=== PATIENT | female | born 1940 ===

== ENCOUNTER 2017-06-13 09:45 | Emergency (ER) | payer MEDICARE, MEDICAID ==
[2017-06-13 10:14] VITALS: RESP 18
--- NOTE | 2017-06-13 10:14 | C.PDOC ---
History Of Present Illness 76 year old female presents to the ED with complaints of generalized body aches , dysuria,decreased activity, and PO intake for five days. Patient denies fever , chills, nausea, vomiting, or headache. Time Seen by Provider: 06/13/17 10:08 Chief Complaint (Nursing): Fever History Per: Patient History/Exam Limitations: no limitations Onset/Duration Of Symptoms: Days (5 days ) Current Symptoms Are (Timing): Still Present Past Medical History Reviewed: Historical Data, Nursing Documentation, Vital Signs Vital Signs: Last Vital Signs Temp 98.5 F 06/13/17 12:59 Pulse 87 06/13/17 12:59 Resp 18 06/13/17 12:59 BP 114/72 06/13/17 12:59 Pulse Ox 96 06/13/17 12:59 Family History: States: Unknown Family Hx Review Of Systems Constitutional: Positive for: Other (generalized bodyaches, decreased activity and PO intake. ). Negative for: Fever, Chills Cardiovascular: Negative for: Chest Pain, Palpitations Respiratory: Negative for: Cough, Shortness of Breath Gastrointestinal: Negative for: Nausea, Vomiting, Abdominal Pain, Diarrhea Genitourinary: Positive for: Dysuria. Negative for: Hematuria Musculoskeletal: Negative for: Back Pain Neurological: Negative for: Headache Physical Exam - Physical Exam Appears: Non-toxic, No Acute Distress, Other (Patient is non-febrile) Skin: Warm, Dry Head: Atraumatic Eye(s): bilateral: Normal Inspection, PERRL, EOMI Ear(s): Bilateral: Normal Oral Mucosa: Moist Neck: Supple Chest: Symmetrical, No Deformity Cardiovascular: Rhythm Regular, No Murmur Respiratory: Normal Breath Sounds, No Rales, No Rhonchi, No Wheezing Gastrointestinal/Abdominal: Soft, No Tenderness, No Distention, No Guarding, No Rebound Back: No CVA Tenderness Extremity: Normal ROM, No Tenderness Neurological/Psych: Oriented x3 (patient is awake, alert, and cooperative), Normal Speech, Normal Cognition, Normal Motor, Normal Sensation ED Course And Treatment - Laboratory Results Result Diagrams: 06/13/17 10:57 06/13/17 10:57 Progress Note: VBG, UA, and blood work were ordered. Patient was treated for UTI due to abnormal urine labs and like viral symptoms. Patient was given Cipro and Rocephin. Disposition - Disposition Referrals: [facility] [Outside] Disposition: HOME/ ROUTINE Disposition Time: 13:09 Condition: STABLE Prescriptions: Nitrofurantoin Macrocrystals [Macrobid] 1 cap PO BID #14 cap Instructions: Urinary Tract Infection in Women (ED), Viral Syndrome (ED) Forms: [facility] (Wolof), General Discharge Instructions - POA Present On Arrival: None - Clinical Impression Clinical Impression: Influenza-like illness, Fever, UTI (urinary tract infection) - Scribe Statement The provider has reviewed the documentation as recorded by the Scribe Michela Kaye All medical record entries made by the Scribe were at my direction and personally dictated by me. I have reviewed the chart and agree that the record accurately reflects my personal performance of the history, physical exam, medical decision making, and the department course for this patient. I have also personally directed, reviewed, and agree with the discharge instructions and disposition.
[2017-06-13 11:00] LABS: VENOUS BLOOD GAS BASE EXCESS 1.5 mmol/L (0.0-2.0); VENOUS BLOOD GAS PCO2 39 mmHg (40-60); VENOUS BLOOD PH 7.43 (7.32-7.43)
[2017-06-13 11:05] LABS: BASO # 0.1 K/uL (0.0-0.2); BASO % 1.1 % (0.0-2.0); EOS % 0.1 % (0.0-4.0); HEMATOCRIT 36.8 % (34.0-47.0); LYMPH # 0.8 K/uL (1.0-4.3); LYMPH % 12.9 % (20.0-40.0); MEAN CELL VOLUME 71.1 fL (81.0-99.0); MEAN CORPUSCULAR HEMOGLOBIN 23.5 pg (27.0-31.0); MEAN PLATELET VOLUME 8.9 fL (7.2-11.7); MONO # 0.8 K/uL (0.0-0.8); MONO % 12.8 % (0.0-10.0); RED CELL DISTRIBUTION WIDTH 13.9 % (11.5-14.5); WHITE BLOOD COUNT 6.2 K/uL (4.8-10.8)
[2017-06-13 11:14] LABS: POTASSIUM 4.4 mmol/L (3.6-5.2)
[2017-06-13 11:16] LABS: BILIRUBIN,TOTAL 0.7 mg/dL (0.2-1.3); TOTAL PROTEIN 7.6 g/dL (6.3-8.3)
[2017-06-13 11:17] LABS: CALCIUM 8.4 mg/dl (8.6-10.4)
[2017-06-13 11:18] LABS: RBC URINE 49 /hpf (0-3); URINE BILIRUBIN NEGATIVE (NEGATIVE); URINE BLOOD 2+ (NEGATIVE); URINE COLOR Yellow (YELLOW); URINE GLUCOSE (UA) NORMAL (Normal); URINE KETONE NEGATIVE (NEGATIVE); URINE LEUKOCYTE ESTERASE TRACE Leu/uL (Negative); URINE PROTEIN 2+ mg/dL (NEGATIVE); WBC URINE 9 /hpf (0-5)
[2017-06-13] MEDS ORDERED: cefTRIAXone IV 1 gm in Dextros 50 ML IVPB ONE ×2 (11:20→11:33)
[2017-06-13] MEDS ORDERED: Ciprofloxacin 400mg/200ml D5W 400 MG/200 ML BAG IVPB ONE ×2 (11:45→11:48)
[2017-06-13 13:00] VITALS: BP 114/72; PULSE 87; TEMP 98.5; O2SAT 96
== END 2017-06-13 13:24 | disposition home or self-care (01) ==
LOC: C.ER 09:45
DX: J11.1 Influenza due to unidentified influenza virus with other respiratory manifestations (principal); N39.0 Urinary tract infection, site not specified
CPT/HCPCS: 36415; 80053; 81001; 82803; 85025; 87040; 87086; 87804; 96365; 96375; 99285; J0696; J0744

== ENCOUNTER 2018-04-27 09:11 | Inpatient (IN) | payer MEDICARE, MEDICAID ==
[2018-04-27] MEDS ORDERED: Albuterol 0.083% Inhal Sol (2.5 mg/3 mL) UD INH STA (09:36)
[2018-04-27] MEDS ORDERED: cefTRIAXone IV 1 gm in Dextros 50 ML IV STA (09:36)
--- NOTE | 2018-04-27 09:36 | C.PDOC ---
History Of Present Illness 77 year old female brought to the ER via transport complaining of new onset cough, chest congestion, and generalized weakness ongoing for 3 days. Associated symptoms include subjective fever, sore throat and decreased appetite. Patient is currently on [place] multiple [place] [facility]. She denies history of CHF, CAD, Asthma/COPD. VIA TRANS NEW ONSET COUGH, CHEST APARNA GEN WEAKNESS X 3 DAYS. SUBJ FEVER. +SORE THROAT, DECR APPETITE. CURRENTLY ON CHEMO FOR MULTIPLE [place]EL[place] X 1 MO. DENIES HO CHF, CAD, ASTHMA/COPD EXAM MILD DIST NONTOXIC HEENT SOFT PALATE PETECHIA; PHARYNX MILD ERYTHEMA NO SWELLING NO CERV NODES LUNGS B/L RHONCHI W RETRACTION. SPEAKING FULL SENTENCES CV RRR NO EDEMA REMAINDER NEG Time Seen by Provider: 04/27/18 09:26 History Per: Patient History/Exam Limitations: no limitations Onset/Duration Of Symptoms: Days Current Symptoms Are (Timing): Still Present Associated Symptoms: Fever, Productive Cough, Other (Chest congestion, general weakness, sore throat, decreased appetite ) Past Medical History Reviewed: Historical Data, Nursing Documentation, Vital Signs Vital Signs: Last Vital Signs Temp 98.4 F 04/27/18 09:26 Pulse 78 04/27/18 09:26 Resp 18 04/27/18 09:26 BP 140/63 04/27/18 09:26 Pulse Ox 99 04/27/18 09:26 - Medical History PMH: HTN Denies: Asthma, CAD, CHF, COPD Other PMH: Multiple myeloma Surgical History: No Surg Hx Family History: States: No Known Family Hx - Social History Hx Alcohol Use: No Hx Substance Use: No - Immunization History Hx Tetanus Toxoid Vaccination: No Hx Influenza Vaccination: No Hx Pneumococcal Vaccination: No Review Of Systems Except As Marked, All Systems Reviewed And Found Negative. Constitutional: Positive for: Fever, Weakness, Other (Decreased appetite ) ENT: Positive for: Throat Pain Respiratory: Positive for: Cough, Other (Chest congestion ) Physical Exam - Physical Exam Appears: Non-toxic, Other (Mild distress) Skin: Warm, Dry Eye(s): bilateral: Normal Inspection Nose: Normal Oral Mucosa: Moist Throat: Erythema (Mild ), Other (Soft palate petechia, no cerv nodes or swelling ) Neck: Supple Chest: Symmetrical Cardiovascular: Rhythm Regular, No Edema Respiratory: Rhonchi (B/L ronchi with retraction ), Other (Speaking full senteces) Neurological/Psych: Oriented x3, Normal Speech Gait: Steady ED Course And Treatment - Laboratory Results Result Diagrams: 04/27/18 09:50 04/27/18 09:50 - Radiology CXR: Interpreted by Me CXR Interpretation: Yes: Infiltrates Progress - Re-Evaluation Re-evaluation Note: 04/27/18 10:54 SP NEB. FEELS IMPROVED. 100% RA. PT STILL W PERSIST SOB. PMD NONCPH 04/27/18 10:57 D/W DR Ayden LEON[facility] [employer] OFFICER AWARE OF ER FINDINGS. - Data Reviewed Data Reviewed: Lab, Diagnostic imaging, EKG, Old records - Continuity of Care Discussed patient case with:: Patient, Family-HIPPA compliant, On-call PMD-pt unassigned Disposition Counseled Patient/Family Regarding: Studies Performed, Diagnosis - Disposition Disposition: HOSPITALIZED Disposition Time: 10:58 Condition: STABLE - POA Present On Arrival: None - Clinical Impression Clinical Impression: Pneumonia, Bandemia, Dyspnea - Scribe Statement The provider has reviewed the documentation as recorded by the Moonibsudhir Aleman All medical record entries made by the Moonibsudhir were at my direction and personally dictated by me. I have reviewed the chart and agree that the record accurately reflects my personal performance of the history, physical exam, medical decision making, and the department course for this patient. I have also personally directed, reviewed, and agree with the discharge instructions and disposition.
[2018-04-27] MEDS ORDERED: Albuterol 0.083% Inhal Sol (2.5 mg/3 mL) UD ONE (09:49)
[2018-04-27] MEDS ORDERED: Albuterol-Ipratrop 3 mg / 0.5 (3 ml) UD ONE (09:53)
[2018-04-27 09:55] LABS: BASO % 0.4 % (0.0-2.0); EOS # 0.1 K/uL (0.0-0.7); EOS % 0.7 % (0.0-4.0); HEMOGLOBIN 10.5 g/dL (11.0-16.0); LYMPH # 0.4 K/uL (1.0-4.3); LYMPH % 5.4 % (20.0-40.0); MEAN CELL VOLUME 69.9 fL (81.0-99.0); MEAN CORPUSCULAR HEMOGLOBIN 23.6 pg (27.0-31.0); MEAN CORPUSCULAR HGB CONC 33.7 g/dL (33.0-37.0); MEAN PLATELET VOLUME 13.2 fL (7.2-11.7); MONO # 1.5 K/uL (0.0-0.8); MONO % 20.6 % (0.0-10.0); NEUT # 5.3 K/uL (1.8-7.0); NEUT % 72.9 % (50.0-75.0); NRBC % 1.2 % (0.0-2.0); RBC 4.46 Mil/uL (3.80-5.20); RED CELL DISTRIBUTION WIDTH 15.1 % (11.5-14.5); WHITE BLOOD COUNT 7.3 K/uL (4.8-10.8)
[2018-04-27] MEDS ORDERED: Azithromycin 500 MG in Sodium Chloride 0.9% 250 ML IVPB ONE (10:00)
[2018-04-27 10:03] LABS: PLATELET COUNT 72 K/uL (130-400)
[2018-04-27] MEDS ORDERED: cefTRIAXone IV 1 gm in Dextros 50 ML IVPB ONE (10:12)
[2018-04-27 10:32] LABS: ALB/GLOB RATIO 1.2 (1.0-2.1); ALBUMIN 3.3 g/dL (3.5-5.0); CALCIUM 7.7 mg/dl (8.6-10.4); GFR AFRICAN-AMERICAN > 60; GFR NON-AFRICAN AMERICAN > 60
[2018-04-27 10:46] LABS: ANISOCYTOSIS SLIGHT; BANDS 26 % (0-2); EOSINOPHIL 1 % (0-4); LYMPHOCYTE 2 % (20-40); MICROCYTOSIS SLIGHT; MONOCYTE 21 % (0-10); NEUTROPHIL 50 % (50-75); PLATELET ESTIMATE DECREASED (NORMAL); TOTAL CELLS COUNTED 100
[2018-04-27 10:47] LABS: HYPOCHROMIC MODERATE; POLYCHROMIC SLIGHT
[2018-04-27] MEDS: Albuterol-Ipratrop 3 mg / 0.5 (3 ml) UD INH SCH (10:53)
[2018-04-27 11:12] LABS: ALT/SGPT 97 U/L (9-52); AST/SGOT 58 U/L (14-36); BLOOD UREA NITROGEN 15 mg/dL (7-17)
[2018-04-27] MEDS ORDERED: Sodium Chloride 0.45% 1,000 ML IV SCH (12:30)
--- NOTE | 2018-04-27 13:04 | RAD ---
Date of service: 04/27/2018 HISTORY: Pneumonia COMPARISON: No prior. TECHNIQUE: Chest PA and lateral FINDINGS: LUNGS: Small nodular opacity seen in the right lower lung. PLEURA: No significant pleural effusion identified. No pneumothorax apparent. CARDIOVASCULAR: Normal. OSSEOUS STRUCTURES: No significant abnormalities. VISUALIZED UPPER ABDOMEN: Normal. OTHER FINDINGS: None. IMPRESSION: Small nodular opacities at the right lower lung. The possibility of infection process cannot be excluded.
[2018-04-27] MEDS: Enoxaparin 40 mg Syringe SC SCH (13:21)
[2018-04-27] MEDS: Sodium Chloride 0.9% 1,000 ML IV SCH ×2 (13:23→22:45)
[2018-04-27] MEDS ORDERED: Albuterol-Ipratrop 3 mg / 0.5 (3 ml) UD INH PRN (13:24)
[2018-04-27] MEDS ORDERED: Iodixanol 320 MG/ML 100 ML BOTTLE IV ONE (13:49)
[2018-04-27] MEDS: Cefepime IV 1 gm in Dextrose 1 GM/50 ML BAG IVPB SCH ×2 (13:56→21:22)
[2018-04-27 13:57] LABS: B-TYPE NATRIURETIC PEPTIDE 2830 pg/mL (0-900)
--- NOTE | 2018-04-27 14:43 | CT ---
Date of service: 04/27/2018 PROCEDURE: CT Chest with contrast (Pulmonary Angiogram) HISTORY: Rule out PE, patient has lymphoma on chemo COMPARISON: None available. TECHNIQUE: Axial computed tomography images were obtained of the chest in the pulmonary arterial phase of enhancement. Coronal and sagittal reformatted images were created and reviewed. Intravenous contrast dose: 100 mL Visipaque 320. Radiation dose: Total exam DLP = 318.79 mGy-cm. This CT exam was performed using one or more of the following dose reduction techniques: Automated exposure control, adjustment of the mA and/or kV according to patient size, and/or use of iterative reconstruction technique. FINDINGS: PULMONARY ARTERIES: Unremarkable. No pulmonary embolism. AORTA: No acute findings. No thoracic aortic aneurysm. LUNGS: There are scattered nodular opacities and small foci of airspace consolidation in the mid and lower portion of the lungs bilaterally larger on the right may represent aspiration or infectious process such as multifocal pneumonia. Bibasilar atelectasis are also noted likely due to pleural effusion. PLEURAL SPACES: There are small bilateral pleural effusions larger on the right. HEART: The heart is upper normal limit in size. LYMPH NODES: No lymphadenopathy. BONES, CHEST WALL: Unremarkable. No fracture or destructive lesion OTHER FINDINGS: The scan through the upper abdomen demonstrate again multiple cystic lesions in the kidneys. IMPRESSION: No evidence of acute pulmonary embolus. Scattered nodular opacities and small consolidation at the mid and lower lungs likely represent multifocal infectious process or less likely aspiration. Small bilateral pleural effusions slightly larger on the right.
[2018-04-27] MEDS: Vancomycin 1 gm/NS 200 ml 1 GM/200 ML BAG IVPB SCH (14:47)
--- NOTE | 2018-04-27 14:55 | CP.PCM.HP ---
<Johann Khan - Last Filed: 04/27/18 21:52> History of Present Illness - History of Present Illness History of Present Illness: CC: "not feeling well" Patient is a 77 year old female with past medical history of Multiple myeloma and HTN that came to ED today due to worsening of shortness of breath and wheezing that started on with mild symptoms that she believed were similar to having a common cold. Patient noticed her symptoms worsening last night. Patient has been coughing yellowish sputum but reports no blood in the sputum. Patient admits to feeling weak and decrease in appetite, as well as having constipation for 2 days. Patient says she started her chemotherapy on March 24, 2018. Patient follows Dr Guillermo Pierre for her MM diagonis. Patient admits to feeling chills, having difficulty breathing and nausea. Patient denies fever, chest pain, headache, dizziness, vision changes, palpitation, abdominal pain, vomiting, diarrhea or dysuria. 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 Patient is currently unemployed, and lives with her son Medications: Amlodipine 10mg, Revlimid 25 mg PO daily for 21 days then stop 7 days Present on Admission - Present on Admission Any Indicators Present on Admission: No Review of Systems - Constitutional Constitutional: Chills, Fatigue, Weakness. absent: Excessive Sweating, Fever, Headache, Increased Appetite, Night Sweats - EENT Eyes: absent: Blurred Vision, Change in Vision Nose/Mouth/Throat: Sore Throat - Cardiovascular Cardiovascular: Dyspnea. absent: Chest Pain, Diaphoresis, Edema, Lightheadedness, Palpitations - Respiratory Respiratory: Cough, Dyspnea, Wheezing - Gastrointestinal Gastrointestinal: Nausea. absent: Abdominal Pain, Constipation, Diarrhea, Dysphagia, Vomiting - Genitourinary Genitourinary: absent: Dysuria - Musculoskeletal Musculoskeletal: absent: Back Pain, Muscle Weakness - Integumentary Integumentary: absent: Bleeding Lesions, Erythema, Rash, Swelling, Unusual Bruising, Wounds - Neurological Neurological: Weakness. absent: Confusion, Dizziness, Headaches, Loss of Vision - Psychiatric Psychiatric: Change in Appetite. absent: Anxiety - Endocrine Endocrine: Fatigue. absent: Excessive Sweating, Palpitations - Hematologic/Lymphatic Hematologic: absent: Easy Bleeding, Easy Bruising Past Patient History - Past Medical History & Family History Past Medical History?: Yes - Past Social History Smoking Status: Never Smoked - CARDIAC Hx Congestive Heart Failure: No Hx Hypertension: Yes - PULMONARY Hx Asthma: No Hx Chronic Obstructive Pulmonary Disease (COPD): No - HEMATOLOGICAL/ONCOLOGICAL Hx Cancer: Yes Hx Chemotherapy: Yes - INTEGUMENTARY Hx Melanoma: Yes - GENITOURINARY/GYNECOLOGICAL Hx Urinary Tract Infection: Yes - PSYCHIATRIC Hx Substance Use: No - ANESTHESIA Hx Anesthesia: No Meds Allergies/Adverse Reactions: Allergies Allergy/AdvReac Type Severity Reaction Status Date / Time No Known Allergies Allergy Verified 04/27/18 09:35 Physical Exam - Constitutional Appears: Non-toxic, No Acute Distress - Head Exam Head Exam: ATRAUMATIC, NORMAL INSPECTION, NORMOCEPHALIC - Eye Exam Eye Exam: EOMI, Normal appearance, PERRL - ENT Exam ENT Exam: Mucous Membranes Dry, Normal Exam - Neck Exam Neck exam: Positive for: Full Rom. Negative for: Tenderness, Thyromegaly - Respiratory Exam Respiratory Exam: Wheezes. absent: Accessory Muscle Use Additional comments: left upper and lower lobe expiratory wheezing left and right lower lobe crackles on auscultation - Cardiovascular Exam Cardiovascular Exam: REGULAR RHYTHM, +S1, +S2 - GI/Abdominal Exam GI & Abdominal Exam: Normal Bowel Sounds, Soft. absent: Distended, Guarding, Mass, Rebound Additional comments: right lower quadrant tenderness on deep palpation - Extremities Exam Extremities exam: Positive for: full ROM, normal inspection, pedal pulses present. Negative for: calf tenderness, pedal edema, tenderness - Back Exam Back exam: FULL ROM, NORMAL INSPECTION. absent: tenderness - Neurological Exam Neurological exam: Alert, CN II-XII Intact, Oriented x3 - Psychiatric Exam Psychiatric exam: Normal Affect, Normal Mood - Skin Skin Exam: Dry, Intact, Normal Color Results - Vital Signs Recent Vital Signs: Last Vital Signs Temp 98.9 F 04/27/18 13:58 Pulse 84 04/27/18 13:58 Resp 22 04/27/18 14:07 BP 123/65 04/27/18 13:58 Pulse Ox 95 04/27/18 14:07 - Labs Result Diagrams: 04/27/18 09:50 04/27/18 09:50 Labs: Laboratory Results - last 24 hr 04/27/18 04/27/18 09:50 09:50 WBC 7.3 RBC 4.46 Hgb 10.5 L Hct 31.2 L MCV 69.9 L MCH 23.6 L MCHC 33.7 RDW 15.1 H Plt Count 72 L D MPV 13.2 H Neut % (Auto) 72.9 Lymph % (Auto) 5.4 L Curry % (Auto) 20.6 H Eos % (Auto) 0.7 Baso % (Auto) 0.4 Neut # (Auto) 5.3 Lymph # (Auto) 0.4 L Curry # (Auto) 1.5 H Eos # (Auto) 0.1 Baso # (Auto) 0.0 Neutrophils % (Manual) 50 Band Neutrophils % 26 H* Lymphocytes % (Manual) 2 L Monocytes % (Manual) 21 H Eosinophils % (Manual) 1 Platelet Estimate Decreased L Polychromasia Slight Hypochromasia (manual) Moderate Anisocytosis (manual) Slight Microcytosis (manual) Slight ESR 20 Sodium 129 L Potassium 4.1 Chloride 96 L Carbon Dioxide 22 Anion Gap 15 BUN 15 Creatinine 0.9 Est GFR ( Amer) > 60 Est GFR (Non-Af Amer) > 60 Random Glucose 89 Calcium 7.7 L Total Bilirubin 1.4 H AST 58 H D ALT 97 H D Alkaline Phosphatase 84 NT-Pro-B Natriuret Pep 2830 H Total Protein 5.9 L Albumin 3.3 L Globulin 2.7 Albumin/Globulin Ratio 1.2 Assessment & Plan - Assessment and Plan (Free Text) Plan: New onset wheezing and shortness of breath - Rule out Pneumonia vs Pulmonary Embolism - T: 98.4, P: 78, BP: 140/63, R: 18, O2: 99 - CBC at ED: 7.3> 10.5/31.2<69.9 -Bands: 26 -CMP at ED: 129/4.1/96/22/15/0.9 <89 -BNP: 2830 - Chest Xray 04/27: Small nodular opacities at the right lower lung. The possibility of infection process cannot be excluded - CT chest 04/27: No evidence of acute pulmonary embolus. Scattered nodular opacities and small consolidation at the mid and lower lungs likely represent multiple infectious process or less likely aspiration. Small bilateral pleural effision slightly larger on the right - Ceftriaxone IV STAT given in ED - Azithromyicin IV stat given in ED - Albuterol 2.5 mg INH STAT in ED - CT angiogram 04/27: F/U - F/U DAHIANA x2 - Strep pneumoniae antigen, urine - Blood culture - F/U - Sputum culture -F/U - Urine Culture - F/U - Influenza, legionella AG, mycoplasma, procalcitonin, rapid stress test - F/U - U/A - tomorrow AM CBC with diff F/U - F/U Vancomycin trough - Meds: * Cefepime IV 1gm IVPB Q8hrs * [id number] IVP Q12hr * Duodenb 3ml INH Q4 PRN thrombocytosis 2/2 Multiple Myeloma - On chemotherapy, last therapy was 04/24/2018 - CBC on ED: 7.3> 10.5/31.2<69.9 - Dr Gotti hematology oncology - Consulted, help is appreciated Hyponatremia - Na: 129 - NS IVF @ 100 mls/hr - monitor am labs mild Transaminitis - AST: 58, ALT: 97 -monitor HTN - Vitals HR: 78, BP 140/63 -hold home med amlodipine 10mg PO daily prophylaxis - DVT prophylaxis: lovenox 20mg SC dialy - Zofran 4mg IVP Q6 PRN - pain med: Tylenol 650mg PO Q6 PRN - Clear liquid diet Plan discussed with Dr Chance Khan, PGY-1 - Date & Time Date: 04/27/18 Time: 15:03 <Chance Kerr H - Last Filed: 05/01/18 15:06> Results - Vital Signs Recent Vital Signs: Last Vital Signs Temp 98.9 F 05/01/18 08:47 Pulse 80 05/01/18 08:47 Resp 20 05/01/18 08:47 BP 152/79 H 05/01/18 08:47 Pulse Ox 95 05/01/18 08:47 - Labs Result Diagrams: 05/01/18 06:52 05/01/18 06:52 Labs: Laboratory Results - last 24 hr 04/28/18 05/01/18 05/01/18 07:21 06:52 06:52 WBC 6.2 RBC 4.29 Hgb 10.0 L Hct 30.3 L MCV 70.8 L MCH 23.3 L MCHC 32.9 L RDW 14.8 H Plt Count 257 MPV 9.4 Neut % (Auto) 65.0 Lymph % (Auto) 12.0 L Curry % (Auto) 20.0 H Eos % (Auto) 3.0 Baso % (Auto) 0.0 Neut # (Auto) 4.0 Lymph # (Auto) 0.7 L Curry # (Auto) 1.2 H Eos # (Auto) 0.3 Baso # (Auto) 0.0 Hemoglobin A 96.7 Hemoglobin A2 2.3 Hemoglobin C 0.0 Hemoglobin F () <1.0 Hemoglobin S 0.0 Variant Hemoglobin 0.0 Hemoglobinopathy Interp See note Sodium 134 Potassium 3.3 L Chloride 98 Carbon Dioxide 27 Anion Gap 11 BUN 11 Creatinine 1.0 Est GFR ( Amer) > 60 Est GFR (Non-Af Amer) 54 Random Glucose 95 Calcium 8.2 L Phosphorus 2.7 Magnesium 2.0 Total Bilirubin 0.9 AST 41 H ALT 66 H Alkaline Phosphatase 76 Total Protein 5.4 L Albumin 2.9 L Globulin 2.5 Albumin/Globulin Ratio 1.1 Attending/Attestation - Attestation I have personally seen and examined this patient.: Yes I have fully participated in the care of the patient.: Yes I have reviewed all pertinent clinical information: Yes Notes (Text): 05/01/18 15:03 Medical attending: Patient was seen and examined by me. Agree with the above note by the resident The patient was not in acute distress when I came and saw in the ER - however her history of the MM and chemotherapy is of note. We will get a CT scan with IV contrast of the chest to assess for PE or potential pneumonia - also initially start of IV Cefpime as well as IV Vancomycin We will need both blood as well as sputum and atypical and urine cultures. 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
[2018-04-27 15:47] VITALS: RESP 20
[2018-04-27 17:33] LABS: CK-MB 1.71 ng/mL (0.0-3.38); TROPONIN I 0.02 ng/mL (0.00-0.120)
[2018-04-27 20:15] LABS: LEGIONELLA AG URINE NEGATIVE (NEGATIVE)
--- NOTE | 2018-04-27 20:33 | CP.PCM.CON ---
History of Present Illness - History of Present Illness History of Present Illness: 77 year old female with a history of HTN and multiple myeloma, admitted with productive cough and shortness of breath. The patient notes to productive cough and shortness of breath which has been worsening. She notes her symptoms began to worry her and she came to the ER. She recently was diagnosed with multiple myeloma and has been receiving treatment with Velcade and Revlimid with Dr. Pierre. She has been tolerating her treatments well. She denies abnormal bleeding and bruising. Past medical history: HTN, multiple myeloma Past surgical history: Hysterectomy for fibroids Family history: Several family members with unknown cancer Social history: Denies tobacco, alcohol, and illicit drug use Allergies: NKA Review of systems: All remaining review of systems including HEENT, cardiovascular, respiratory, gastrointestinal, genitourinary, musculoskeletal, dermatologic, neurologic, and psychiatric are negative unless mentioned in the HPI. Past Patient History - Past Medical History & Family History Past Medical History?: Yes - Past Social History Smoking Status: Never Smoked - CARDIAC Hx Congestive Heart Failure: No Hx Hypertension: Yes - PULMONARY Hx Asthma: No Hx Chronic Obstructive Pulmonary Disease (COPD): No - HEMATOLOGICAL/ONCOLOGICAL Hx Cancer: Yes Hx Chemotherapy: Yes - INTEGUMENTARY Hx Melanoma: Yes - MUSCULOSKELETAL/RHEUMATOLOGICAL Hx Falls: No - GENITOURINARY/GYNECOLOGICAL Hx Urinary Tract Infection: Yes - PSYCHIATRIC Hx Substance Use: No - ANESTHESIA Hx Anesthesia: No Meds Allergies/Adverse Reactions: Allergies Allergy/AdvReac Type Severity Reaction Status Date / Time No Known Allergies Allergy Verified 04/27/18 09:35 - Medications Medications: Current Medications Acetaminophen (Tylenol 325mg Tab) 650 mg PO Q6 PRN PRN Reason: Fever >100.4 F Albuterol/Ipratropium (Duoneb 3 Mg/0.5 Mg (3 Ml) Ud) 3 ml INH RQ4 PRN PRN Reason: Shortness of Breath Enoxaparin Sodium (Lovenox) 40 mg SC DAILY [facility] Last Admin: 04/27/18 13:21 Dose: 40 mg Vancomycin/Sodium Chloride (Vancomycin 1 Gm/Ns 200 Ml) 1 gm in 200 mls @ 133 mls/hr IVPB Q12H MELANI PRN Reason: Protocol Stop: 05/02/18 14:01 Last Admin: 04/27/18 14:47 Dose: 133 mls/hr Cefepime HCl (Maxipime Iv 1 Gm Premix) 1 gm in 50 mls @ 100 mls/hr IVPB Q8H MELANI PRN Reason: Protocol Last Admin: 04/27/18 13:56 Dose: 100 mls/hr Sodium Chloride (Sodium Chloride 0.9%) 1,000 mls @ 100 mls/hr IV .Q10H [facility]ELANI Last Admin: 04/27/18 13:23 Dose: 100 mls/hr Ondansetron HCl (Zofran Inj) 4 mg IVP Q6 PRN PRN Reason: Nausea/Vomiting Last Admin: 04/27/18 14:06 Dose: 4 mg Physical Exam - Head Exam Head Exam: ATRAUMATIC - Eye Exam Eye Exam: Normal appearance - ENT Exam ENT Exam: Mucous Membranes Dry - Respiratory Exam Respiratory Exam: NORMAL BREATHING PATTERN - Cardiovascular Exam Cardiovascular Exam: +S1, +S2 - GI/Abdominal Exam GI & Abdominal Exam: Normal Bowel Sounds - Extremities Exam Extremities exam: Positive for: normal inspection - Neurological Exam Neurological exam: Oriented x3 - Psychiatric Exam Psychiatric exam: Normal Affect, Normal Mood - Skin Skin Exam: Warm Results - Vital Signs Recent Vital Signs: Last Vital Signs Temp 99.4 F 04/27/18 15:46 Pulse 82 04/27/18 15:46 Resp 20 04/27/18 15:46 BP 112/64 04/27/18 15:46 Pulse Ox 95 04/27/18 15:46 - Labs Result Diagrams: 04/27/18 09:50 04/27/18 09:50 Labs: Laboratory Results - last 24 hr 04/27/18 04/27/18 04/27/18 09:50 09:50 17:01 WBC 7.3 RBC 4.46 Hgb 10.5 L Hct 31.2 L MCV 69.9 L MCH 23.6 L MCHC 33.7 RDW 15.1 H Plt Count 72 L D MPV 13.2 H Neut % (Auto) 72.9 Lymph % (Auto) 5.4 L [place] % (Auto) 20.6 H Eos % (Auto) 0.7 Baso % (Auto) 0.4 Neut # (Auto) 5.3 Lymph # (Auto) 0.4 L [place] # (Auto) 1.5 H Eos # (Auto) 0.1 Baso # (Auto) 0.0 Neutrophils % (Manual) 50 Band Neutrophils % 26 H* Lymphocytes % (Manual) 2 L Monocytes % (Manual) 21 H Eosinophils % (Manual) 1 Platelet Estimate Decreased L Polychromasia Slight Hypochromasia (manual) Moderate Anisocytosis (manual) Slight Microcytosis (manual) Slight ESR 20 Sodium 129 L Potassium 4.1 Chloride 96 L Carbon Dioxide 22 Anion Gap 15 BUN 15 Creatinine 0.9 Est GFR ( Amer) > 60 Est GFR (Non-Af Amer) > 60 Random Glucose 89 Calcium 7.7 L Total Bilirubin 1.4 H AST 58 H D ALT 97 H D Alkaline Phosphatase 84 Total Creatine Kinase 187 H CK-MB (Mass) 1.71 Troponin I 0.0200 NT-Pro-B Natriuret Pep 2830 H Total Protein 5.9 L Albumin 3.3 L Globulin 2.7 Albumin/Globulin Ratio 1.2 Influenza Typ A,B (EIA) Ur L.pneumophila Ag 04/27/18 19:28 WBC RBC Hgb Hct MCV MCH MCHC RDW Plt Count MPV Neut % (Auto) Lymph % (Auto) [place] % (Auto) Eos % (Auto) Baso % (Auto) Neut # (Auto) Lymph # (Auto) [place] # (Auto) Eos # (Auto) Baso # (Auto) Neutrophils % (Manual) Band Neutrophils % Lymphocytes % (Manual) Monocytes % (Manual) Eosinophils % (Manual) Platelet Estimate Polychromasia Hypochromasia (manual) Anisocytosis (manual) Microcytosis (manual) ESR Sodium Potassium Chloride Carbon Dioxide Anion Gap BUN Creatinine Est GFR ( Amer) Est GFR (Non-Af Amer) Random Glucose Calcium Total Bilirubin AST ALT Alkaline Phosphatase Total Creatine Kinase CK-MB (Mass) Troponin I NT-Pro-B Natriuret Pep Total Protein Albumin Globulin Albumin/Globulin Ratio Influenza Typ A,B (EIA) Negative for flu a/b Ur L.pneumophila Ag Negative Assessment & Plan (1) Thrombocytopenia Assessment and Plan: may be related to chemotherapy and multiple myeloma cont. to monitor hold myeloma treatment for now Status: Acute (2) Anemia Assessment and Plan: will check retic count, b12, folate, ferritin, hgb electropheresis to further characterize likely related to myeloma hold myeloma treatment Status: Acute (3) Multiple myeloma Assessment and Plan: can resume myeloma treatment once cleared of infection outpatient f/u with primary oncologist Dr. Pierre Thank you for this interesting consult. Status: Acute
[2018-04-27 21:45] LABS: INFLUENZA A B NEGATIVE FOR FLU A/B (NEGATIVE)
[2018-04-27 23:14] LABS: CK-MB 2.03 ng/mL (0.0-3.38); TROPONIN I 0.028 ng/mL (0.00-0.120)
[2018-04-28] MEDS: Vancomycin 1 gm/NS 200 ml 1 GM/200 ML BAG IVPB SCH ×2 (02:04→14:03)
[2018-04-28] MEDS: Sodium Chloride 0.9% 1,000 ML IV SCH ×3 (05:05→22:01)
[2018-04-28] MEDS: Cefepime IV 1 gm in Dextrose 1 GM/50 ML BAG IVPB SCH ×2 (05:23→13:22)
[2018-04-28 07:46] LABS: ALB/GLOB RATIO 1.2 (1.0-2.1); ALBUMIN 2.8 g/dL (3.5-5.0); ALT/SGPT 82 U/L (9-52); AST/SGOT 34 U/L (14-36); BLOOD UREA NITROGEN 13 mg/dL (7-17); CALCIUM 7.7 mg/dl (8.6-10.4); GFR AFRICAN-AMERICAN > 60; GFR NON-AFRICAN AMERICAN > 60
[2018-04-28 07:53] LABS: CK-MB 2.45 ng/mL (0.0-3.38); TROPONIN I 0.02 ng/mL (0.00-0.120)
[2018-04-28 07:54] LABS: HEMOGLOBIN 10.2 g/dL (11.0-16.0); MEAN CELL VOLUME 70.6 fL (81.0-99.0); MEAN CORPUSCULAR HEMOGLOBIN 23.3 pg (27.0-31.0); MEAN CORPUSCULAR HGB CONC 33.1 g/dL (33.0-37.0); MEAN PLATELET VOLUME 12.4 fL (7.2-11.7); PLATELET COUNT 91 K/uL (130-400); RBC 4.39 Mil/uL (3.80-5.20); RED CELL DISTRIBUTION WIDTH 15.1 % (11.5-14.5); WHITE BLOOD COUNT 6.8 K/uL (4.8-10.8)
--- NOTE | 2018-04-28 08:19 | CP.PCM.PN ---
<Juventino Whitt - Last Filed: 04/28/18 20:22> Subjective - Date & Time of Evaluation Date of Evaluation: 04/28/18 Time of Evaluation: 10:15 - Subjective Subjective: Juventino Whitt PGY-1 Medicine Progress Note Patient seen and examined at bedside. Patient complains of nonproductive cough. Nursing reports that patient becomes short of breath upon movement or to use the bathroom. Patient denies fever, chills, chest pain, n/v, diarrhea. Patient reports good urine output with no urinary symptoms. Objective - Vital Signs/Intake and Output Vital Signs (last 24 hours): Temp Pulse Resp BP Pulse Ox 98.3 F 71 20 128/69 95 04/28/18 07:54 04/28/18 07:54 04/28/18 07:54 04/28/18 07:54 04/28/18 07:54 Intake and Output: 04/28/18 04/28/18 06:59 18:59 Intake Total 2050 Output Total 550 Balance 1500 - Medications Medications: Current Medications Acetaminophen (Tylenol 325mg Tab) 650 mg PO Q6 PRN PRN Reason: Fever >100.4 F Albuterol/Ipratropium (Duoneb 3 Mg/0.5 Mg (3 Ml) Ud) 3 ml INH RQ4 PRN PRN Reason: Shortness of Breath Enoxaparin Sodium (Lovenox) 40 mg SC DAILY [facility] Last Admin: 04/27/18 13:21 Dose: 40 mg Vancomycin/Sodium Chloride (Vancomycin 1 Gm/Ns 200 Ml) 1 gm in 200 mls @ 133 mls/hr IVPB Q12H MELANI PRN Reason: Protocol Stop: 05/02/18 14:01 Last Admin: 04/28/18 02:04 Dose: 133 mls/hr Cefepime HCl (Maxipime Iv 1 Gm Premix) 1 gm in 50 mls @ 100 mls/hr IVPB Q8H MELANI PRN Reason: Protocol Last Admin: 04/28/18 05:23 Dose: 100 mls/hr Sodium Chloride (Sodium Chloride 0.9%) 1,000 mls @ 100 mls/hr IV .Q10H [facility] Last Admin: 04/28/18 08:13 Dose: Not Given Ondansetron HCl (Zofran Inj) 4 mg IVP Q6 PRN PRN Reason: Nausea/Vomiting Last Admin: 04/27/18 14:06 Dose: 4 mg - Labs Labs: 04/28/18 07:21 04/28/18 07:21 APTT 26 SECONDS (21-34) 04/28/18 07:21 - Constitutional Appears: Well, No Acute Distress - Head Exam Head Exam: NORMAL INSPECTION, NORMOCEPHALIC - Eye Exam Eye Exam: Normal appearance, PERRL - ENT Exam ENT Exam: Mucous Membranes Moist, Normal Exam - Respiratory Exam Respiratory Exam: Decreased Breath Sounds, Rales - Cardiovascular Exam Cardiovascular Exam: REGULAR RHYTHM, +S1, +S2. absent: Murmur - GI/Abdominal Exam GI & Abdominal Exam: Soft, Normal Bowel Sounds. absent: Distended, Tenderness - Extremities Exam Extremities Exam: Normal Inspection. absent: Pedal Edema - Back Exam Back Exam: NORMAL INSPECTION - Neurological Exam Neurological Exam: Alert, Oriented x3 - Psychiatric Exam Psychiatric exam: Normal Affect, Normal Mood - Skin Skin Exam: Normal Color. absent: Diaphoretic, Rash Assessment and Plan - Assessment and Plan (Free Text) Assessment: Patient is a 77 year old female with past medical history of Multiple myeloma and HTN that came to ED today due to worsening of shortness of breath and wheezing. Plan: Shortness of breath Likely secondary to pneumonia 04-27-18 CXR- small nodular opacities at the right lower lung. possibility of infection process cannot be excluded 04-27-18 CT chest- no evidence of acute pulm embolus; scattered nodular opacities and small consolidation at the mid and lower lungs likely represent multifocal infectious process or less likely aspiration. small bilateral effusions slight larger on the right Atypicals PNA negative Rapid Strep test negative DAHIANA x3 negative Vancomycin 1g in 200 mls + Cefepime 2gm in 100mls Duonebs 3mg scheduled Mucinex 600mg bid Repeat CXR for otmorrow ID consult: Dr. Keenan Multiple Myeloma Treated outpatient by Dr. Pierre- primary oncologist; Resume myeloma treatment once infection clear is Ana María recommendation F/U outpatient with Dr. Pierre Hyponatremia (resolved) Na: 132 s/p NS IVF @ 100 mls/hr Thrombocyotpenia Platelet: 91 ; likely secondary to multiple myeloma Dr. Gotti following Anemia H&H: 10.2/31.8; likely secondary to multiple myeloma retic count: 1.4, b12: 955, folate:14.4, ferritin:[address] Gotti's recommendations Transaminitis Mild elevation AST: 34, ALT: 82 Continue to monitor Hypokalemia KCl 40 meq x1 Monitor labs; replete as necessary HTN BP: 157/75; If repeated elevated blood pressure measurements consider restarting anti-HTN agent Prophylaxis DVT prophylaxis: lovenox 40mg daily Zofran 4mg IVP Q6 PRN Pain med: Tylenol 650mg PO Q6 PRN <Shayla Schilling - Last Filed: 04/29/18 08:46> Objective - Vital Signs/Intake and Output Vital Signs (last 24 hours): Temp Pulse Resp BP Pulse Ox 99.0 F 77 20 150/66 96 04/29/18 07:54 04/29/18 07:54 04/29/18 07:54 04/29/18 07:54 04/29/18 07:54 Intake and Output: 04/29/18 04/29/18 06:59 18:59 Intake Total 2049 Balance 2049 - Medications Medications: Current Medications Acetaminophen (Tylenol 325mg Tab) 650 mg PO Q6 PRN PRN Reason: Fever >100.4 F Albuterol/Ipratropium (Duoneb 3 Mg/0.5 Mg (3 Ml) Ud) 3 ml INH RQ4 [facility] Last Admin: 04/29/18 03:12 Dose: Not Given Enoxaparin Sodium (Lovenox) 40 mg SC DAILY [facility] Last Admin: 04/28/18 09:31 Dose: 40 mg Famotidine (Pepcid) 20 mg PO BID [facility] Last Admin: 04/28/18 17:39 Dose: 20 mg Guaifenesin (Mucinex La) 600 mg PO BID [facility]ELANI Last Admin: 04/28/18 17:40 Dose: 600 mg Vancomycin/Sodium Chloride (Vancomycin 1 Gm/Ns 200 Ml) 1 gm in 200 mls @ 133 mls/hr IVPB Q12H MELANI PRN Reason: Protocol Stop: 05/02/18 14:01 Last Admin: 04/29/18 02:15 Dose: 133 mls/hr Cefepime HCl (Maxipime Iv 2 Gm Premix) 2 gm in 100 mls @ 200 mls/hr IVPB Q8H MELANI PRN Reason: Protocol Stop: 05/03/18 17:31 Last Admin: 04/29/18 00:30 Dose: 200 mls/hr Ondansetron HCl (Zofran Inj) 4 mg IVP Q6 PRN PRN Reason: Nausea/Vomiting Last Admin: 04/27/18 14:06 Dose: 4 mg Potassium Chloride (K-Dur 20 Meq Er Tab) 40 meq PO ONCE ONE Stop: 04/29/18 08:25 - Labs Labs: 04/29/18 07:08 04/29/18 07:08 APTT 26 SECONDS (21-34) 04/28/18 07:21 Attending/Attestation - Attestation I have personally seen and examined this patient.: Yes I have fully participated in the care of the patient.: Yes I have reviewed all pertinent clinical information, including history, physical exam and plan: Yes Notes (Text): Seen and examined by me with the resident. Sitting on bed,pleasant ,coughing with dyspnea. C/O shortness of breath with minimal exertion.no fever On examination she has bilateral rhonchi Discussed with her family at bedside 1.Multifocal pneumonia,shortness of breath sputum gram negative rods She is a immuno compromised pt.MM on treatment. Dr Keenan's input appreciated . she increased her cefepime to 2gram 8hrly continue vancomycin follow culture sensitivity 2.Multiple myloma follows DR Pierre oncologist Dr Gotti's consult appreciated Hold MM treatment ,start back after her infections resolve 3.Thrombocypopenia-likely due to MM treatment 4.Transaminitis-improving 5.Hyponatremia-improving Assessment and the plan discussed with the resident. I agree with the documentation
[2018-04-28 08:52] LABS: FOLATE 14.4 ng/mL
[2018-04-28] MEDS: Enoxaparin 40 mg Syringe SC SCH (09:31)
[2018-04-28 09:41] LABS: EOS # 0.2 K/uL (0.0-0.7); LYMPH # 0.3 K/uL (1.0-4.3); MONO # 1.4 K/uL (0.0-0.8)
[2018-04-28 09:44] LABS: BANDS 3 % (0-2); EOSINOPHIL 3 % (0-4); LYMPHOCYTE 5 % (20-40); MONOCYTE 20 % (0-10); NEUTROPHIL 69 % (50-75); PLATELET ESTIMATE DECREASED (NORMAL); TOTAL CELLS COUNTED 100
[2018-04-28 09:45] LABS: ANISOCYTOSIS SLIGHT; HYPOCHROMIC SLIGHT; POIKILOCYTOSIS SLIGHT
[2018-04-28] MEDS ORDERED: Potassium Chloride 20 mEq ER Tab PO ONE (15:34)
[2018-04-28] MEDS: Albuterol-Ipratrop 3 mg / 0.5 (3 ml) UD INH SCH ×2 (16:00→21:22)
--- NOTE | 2018-04-28 17:04 | CP.PCM.CON ---
History of Present Illness - History of Present Illness History of Present Illness: dictated Past Patient History - Past Medical History & Family History Past Medical History?: Yes - Past Social History Smoking Status: Never Smoked - CARDIAC Hx Congestive Heart Failure: No Hx Hypertension: Yes - PULMONARY Hx Asthma: No Hx Chronic Obstructive Pulmonary Disease (COPD): No - HEMATOLOGICAL/ONCOLOGICAL Hx Cancer: Yes Hx Chemotherapy: Yes - INTEGUMENTARY Hx Melanoma: Yes - MUSCULOSKELETAL/RHEUMATOLOGICAL Hx Falls: No - GENITOURINARY/GYNECOLOGICAL Hx Urinary Tract Infection: Yes - PSYCHIATRIC Hx Substance Use: No - ANESTHESIA Hx Anesthesia: No Meds Allergies/Adverse Reactions: Allergies Allergy/AdvReac Type Severity Reaction Status Date / Time No Known Allergies Allergy Verified 04/27/18 09:35 - Medications Medications: Current Medications Acetaminophen (Tylenol 325mg Tab) 650 mg PO Q6 PRN PRN Reason: Fever >100.4 F Albuterol/Ipratropium (Duoneb 3 Mg/0.5 Mg (3 Ml) Ud) 3 ml INH RQ4 MELANI Enoxaparin Sodium (Lovenox) 40 mg SC DAILY [facility] Last Admin: 04/28/18 09:31 Dose: 40 mg Famotidine (Pepcid) 20 mg PO BID [facility] Guaifenesin (Mucinex La) 600 mg PO BID [facility] Vancomycin/Sodium Chloride (Vancomycin 1 Gm/Ns 200 Ml) 1 gm in 200 mls @ 133 mls/hr IVPB Q12H MELANI PRN Reason: Protocol Stop: 05/02/18 14:01 Last Admin: 04/28/18 14:03 Dose: 133 mls/hr Cefepime HCl (Maxipime Iv 1 Gm Premix) 1 gm in 50 mls @ 100 mls/hr IVPB Q8H MELANI PRN Reason: Protocol Last Admin: 04/28/18 13:22 Dose: 100 mls/hr Sodium Chloride (Sodium Chloride 0.9%) 1,000 mls @ 100 mls/hr IV .Q10H [facility] Last Admin: 04/28/18 08:13 Dose: Not Given Ondansetron HCl (Zofran Inj) 4 mg IVP Q6 PRN PRN Reason: Nausea/Vomiting Last Admin: 04/27/18 14:06 Dose: 4 mg Results - Vital Signs Recent Vital Signs: Last Vital Signs Temp 99.2 F 04/28/18 16:15 Pulse 75 04/28/18 16:15 Resp 20 04/28/18 16:15 BP 157/75 H 04/28/18 16:15 Pulse Ox 98 04/28/18 16:15 - Labs Result Diagrams: 04/28/18 07:21 04/28/18 07:21 Labs: Laboratory Results - last 24 hr 04/27/18 04/27/18 04/27/18 17:01 19:28 22:30 WBC RBC Hgb Hct MCV MCH MCHC RDW Plt Count MPV Neut % (Auto) Lymph % (Auto) [place] % (Auto) Eos % (Auto) Baso % (Auto) Neut # (Auto) Lymph # (Auto) [place] # (Auto) Eos # (Auto) Baso # (Auto) Neutrophils % (Manual) Band Neutrophils % Lymphocytes % (Manual) Monocytes % (Manual) Eosinophils % (Manual) Platelet Estimate Hypochromasia (manual) Poikilocytosis (manual Anisocytosis (manual) Retic Count APTT Sodium Potassium Chloride Carbon Dioxide Anion Gap BUN Creatinine Est GFR ( Amer) Est GFR (Non-Af Amer) Random Glucose Calcium Ferritin Total Bilirubin AST ALT Alkaline Phosphatase Total Creatine Kinase 187 H 201 H CK-MB (Mass) 1.71 2.03 Troponin I 0.0200 0.0280 Total Protein Albumin Globulin Albumin/Globulin Ratio Vitamin B12 Folate Influenza Typ A,B (EIA) Negative for flu a/b Ur L.pneumophila Ag Negative Grp A Beta Strep Ag Negative 04/28/18 04/28/18 04/28/18 07:21 07:21 07:21 WBC 6.8 RBC 4.39 Hgb 10.2 L Hct 31.0 L MCV 70.6 L MCH 23.3 L MCHC 33.1 RDW 15.1 H Plt Count 91 L MPV 12.4 H Neut % (Auto) 73.0 Lymph % (Auto) 4.0 L [place] % (Auto) 20.0 H Eos % (Auto) 3.0 Baso % (Auto) 1.0 Neut # (Auto) 5.0 Lymph # (Auto) 0.3 L [place] # (Auto) 1.4 H Eos # (Auto) 0.2 Baso # (Auto) 0.0 Neutrophils % (Manual) 69 Band Neutrophils % 3 H Lymphocytes % (Manual) 5 L Monocytes % (Manual) 20 H Eosinophils % (Manual) 3 Platelet Estimate Decreased L Hypochromasia (manual) Slight Poikilocytosis (manual Slight Anisocytosis (manual) Slight Retic Count APTT 26 Sodium 132 Potassium 3.4 L Chloride 99 Carbon Dioxide 27 Anion Gap 9 L BUN 13 Creatinine 0.9 Est GFR ( Amer) > 60 Est GFR (Non-Af Amer) > 60 Random Glucose 89 Calcium 7.7 L Ferritin 731.0 Total Bilirubin 0.8 AST 34 ALT 82 H Alkaline Phosphatase 79 Total Creatine Kinase CK-MB (Mass) Troponin I Total Protein 5.1 L Albumin 2.8 L Globulin 2.4 Albumin/Globulin Ratio 1.2 Vitamin B12 955 H Folate 14.4 Influenza Typ A,B (EIA) Ur L.pneumophila Ag Grp A Beta Strep Ag 04/28/18 04/28/18 07:21 07:21 WBC RBC Hgb Hct MCV MCH MCHC RDW Plt Count MPV Neut % (Auto) Lymph % (Auto) [place] % (Auto) Eos % (Auto) Baso % (Auto) Neut # (Auto) Lymph # (Auto) [place] # (Auto) Eos # (Auto) Baso # (Auto) Neutrophils % (Manual) Band Neutrophils % Lymphocytes % (Manual) Monocytes % (Manual) Eosinophils % (Manual) Platelet Estimate Hypochromasia (manual) Poikilocytosis (manual Anisocytosis (manual) Retic Count 1.4 APTT Sodium Potassium Chloride Carbon Dioxide Anion Gap BUN Creatinine Est GFR ( Amer) Est GFR (Non-Af Amer) Random Glucose Calcium Ferritin Total Bilirubin AST ALT Alkaline Phosphatase Total Creatine Kinase 212 H CK-MB (Mass) 2.45 Troponin I 0.0200 Total Protein Albumin Globulin Albumin/Globulin Ratio Vitamin B12 Folate Influenza Typ A,B (EIA) Ur L.pneumophila Ag Grp A Beta Strep Ag
[2018-04-28] MEDS: guaiFENesin 600 mg ER Tab PO SCH (17:40)
[2018-04-28] MEDS: Cefepime IV 2 gm in Dextrose 2 GM/100 ML BAG IVPB SCH (18:51)
[2018-04-29] MEDS: Albuterol-Ipratrop 3 mg / 0.5 (3 ml) UD INH SCH ×6 (00:26→20:01)
[2018-04-29] MEDS: Cefepime IV 2 gm in Dextrose 2 GM/100 ML BAG IVPB SCH ×3 (00:30→17:30)
[2018-04-29] MEDS: Vancomycin 1 gm/NS 200 ml 1 GM/200 ML BAG IVPB SCH ×2 (02:15→14:08)
[2018-04-29 04:21] LABS: MCH 23.1 pg (27.0-33.0); MCV 71.5 fL (80.0-100.0)
--- NOTE | 2018-04-29 05:04 | CON ---
DATE: 04/28/2018 INFECTIOUS DISEASE CONSULT REQUESTING PHYSICIAN: Von Schilling MD HISTORY OF PRESENT ILLNESS: This patient is a 77-year-old female. She has a history of multiple myeloma. She speaks mostly [place]ian, has history of hypertension. She came in with listing of shortness of breath and she was wheezing. This started on and she states she came on Saturday and she thought she was having common cold, but started to get worse and started to wheeze and cough and bring up yellowish sputum. She denies any blood. She is coughing a lot and feels weak, poor appetite, constipated, and she is asking for medication for constipation. She had a chemotherapy on 03/24/[address] Guillermo Pierre as she was diagnosed with multiple myeloma. She has no history of known Port-A-Cath. She was having chills, difficulty breathing, nausea, fever, and was coughing a lot and was wheezing. Her PMD is Dr. Tita Clarke. ALLERGIES: SHE IS NOT ALLERGIC TO ANY MEDICINE. 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 PAST SURGICAL HISTORY: Significant for breast implant surgery and hysterectomy. FAMILY HISTORY: Cancer in the cousin and uncle, but was not able to get much. SOCIAL HISTORY: She denies drinking and smoking. She lives with her son. MEDICATIONS: She is on amlodipine and she is on Revlimid 25 mg for 24 days and then stopped for 7 days. She is on thalidomide treatment at this time. REVIEW OF SYSTEMS: She came in with chills, fatigue, and weakness. Poor appetite. She has no sweating. No headache. No night sweats. She did complain of sore throat and she denied any ear, nose, or throat problems. She did have shortness of breath and dyspnea. Denied any chest pain. No diaphoresis or palpitation. She has a cough with yellowish sputum, shortness of breath, and wheezing a lot. She is a nonsmoker. GI: She has nausea and constipation. No vomiting. No diarrhea and no dysphagia. She denies any dysuria, urgency, or frequency. Denies any back pain or muscle ache. Denies any rash or erythema. She did come with a weakness. Has confusion, dizziness, and headaches. Psychiatry: Change in appetite. Endocrine: Fatigue. Hematological: No easy bleeding. Past history is significant for hypertension. No history of asthma. No history of COPD. She has multiple myeloma history and she also has a history of melanoma, I am not sure of, history of UTIs in the past. She is not allergic to any medicine. MEDICATIONS: She is on Tylenol, albuterol nebulizer. She is on cefepime 1 gm every 8 hours and she is on Lovenox, famotidine, Guaifenesin, Zofran, sodium chloride was not given, and she is on vancomycin 1 gm every 12 hours. PHYSICAL EXAMINATION: VITAL SIGNS: Her temperature is 99.2, pulse 75, blood pressure is 157/75, respirations are 20. HEENT: Head is atraumatic and normocephalic. Pupils are reacting to light. Eye movements are unremarkable. Tongue is moist. NECK: Supple. JVP is flat. CHEST: Chest wall is symmetrical. She is not using accessory muscles, though she is coughing a lot, bringing out yellowish sputum. LUNGS: Bilateral wheezing present and no crackles. HEART: S1, S2 regular. No murmurs appreciated. ABDOMEN: Soft. Nontender. No guarding, no rigidity present. EXTREMITIES: No edema, clubbing, or cyanosis. She showed me a surgical scar of previous surgery. LABORATORY DATA: Showed white count yesterday was 7.3; sodium 129; chloride 96; platelets 72, was low. She had a CAT scan of the chest, which shows scattered nodular opacity and small foci of consolidation in mid and lower lung portions of lung bilaterally, large on the right, may represent aspiration or infectious process such as multifocal pneumonia, bibasilar atelectasis are noted likely due to pleural effusion, so this patient has bilateral multifocal pneumonia. Labs are noted. Labs show white count is 6.8; hemoglobin 10.2 today; hematocrit 31; platelet count is 91, is better and chemistry shows that potassium is 3.2, it will be supplemented; creatinine is 0.9; CPK is 212; MB is 0.02. is negative. The serology they did for influenza is negative. Legionella is negative. Group A strep is negative and group B strep. Micro shows blood cultures are pending. Urine culture negative 24 hours. The sputum, however, has Gram-negative rods and she is on Maxipime 1 gm every 8 hours. ASSESSMENT AND PLAN: My impression is she does have multifocal pneumonia with bilateral infiltrates. I would continue with Maxipime, we will make it 2 gm every 8 hours for now and we will leave it at this 1 gm every 8 hours for now or we can add it at 2 gm. So, at this time, I will leave her on the cefepime. We will wait for the culture report tomorrow morning and we will follow. Leave the vancomycin on for now and we will follow her. She is on nebulizer treatment. She is acutely ill. She is on vancomycin and cefepime, which I will continue and since she is immunosuppressed, we will need to see what this Gram-negative sami she grows. Celestine Keenan MD
--- NOTE | 2018-04-29 06:57 | CP.PCM.PN ---
<AyoubGema - Last Filed: 04/29/18 17:39> Subjective - Date & Time of Evaluation Date of Evaluation: 04/29/18 Time of Evaluation: 11:25 - Subjective Subjective: 77 yo F w/ PMHx of MM and HTN, admitted w/ PNA. Pt seen and examined at bedside. Patient reports worsening cough, chest pain w/ deep inspiration, malaise since yesterday. Objective - Vital Signs/Intake and Output Vital Signs (last 24 hours): Temp Pulse Resp BP Pulse Ox 98.9 F 84 20 124/64 97 04/28/18 23:55 04/28/18 23:55 04/28/18 23:55 04/28/18 23:55 04/28/18 23:55 Intake and Output: 04/28/18 04/29/18 18:59 06:59 Intake Total 1150 950 Balance 1150 950 - Medications Medications: Current Medications Acetaminophen (Tylenol 325mg Tab) 650 mg PO Q6 PRN PRN Reason: Fever >100.4 F Albuterol/Ipratropium (Duoneb 3 Mg/0.5 Mg (3 Ml) Ud) 3 ml INH RQ4 [facility] Last Admin: 04/29/18 03:12 Dose: Not Given Enoxaparin Sodium (Lovenox) 40 mg SC DAILY [facility] Last Admin: 04/28/18 09:31 Dose: 40 mg Famotidine (Pepcid) 20 mg PO BID [facility] Last Admin: 04/28/18 17:39 Dose: 20 mg Guaifenesin (Mucinex La) 600 mg PO BID [facility] Last Admin: 04/28/18 17:40 Dose: 600 mg Vancomycin/Sodium Chloride (Vancomycin 1 Gm/Ns 200 Ml) 1 gm in 200 mls @ 133 mls/hr IVPB Q12H [facility] PRN Reason: Protocol Stop: 05/02/18 14:01 Last Admin: 04/29/18 02:15 Dose: 133 mls/hr Sodium Chloride (Sodium Chloride 0.9%) 1,000 mls @ 100 mls/hr IV .Q10H [facility] Last Admin: 04/28/18 22:01 Dose: 100 mls/hr Cefepime HCl (Maxipime Iv 2 Gm Premix) 2 gm in 100 mls @ 200 mls/hr IVPB Q8H [facility] PRN Reason: Protocol Stop: 05/03/18 17:31 Last Admin: 04/29/18 00:30 Dose: 200 mls/hr Ondansetron HCl (Zofran Inj) 4 mg IVP Q6 PRN PRN Reason: Nausea/Vomiting Last Admin: 04/27/18 14:06 Dose: 4 mg - Labs Labs: 04/28/18 07:21 04/28/18 07:21 APTT 26 SECONDS (21-34) 04/28/18 07:21 - Constitutional Appears: Well, Non-toxic - Head Exam Head Exam: ATRAUMATIC, NORMAL INSPECTION, NORMOCEPHALIC - Eye Exam Eye Exam: EOMI - ENT Exam ENT Exam: Mucous Membranes Moist - Respiratory Exam Respiratory Exam: Rhonchi, Wheezes. absent: Accessory Muscle Use, Clear to Ausculation Bilateral - Cardiovascular Exam Cardiovascular Exam: REGULAR RHYTHM. absent: Murmur - GI/Abdominal Exam GI & Abdominal Exam: Soft, Normal Bowel Sounds - Extremities Exam Extremities Exam: absent: Pedal Edema Assessment and Plan - Assessment and Plan (Free Text) Assessment: 77 yo F admitted w/ PNA 1. PNA-CAP -sputum cx + Enterobacter Cloacae -cefepime 2g q8 (04/28) -cipro 500mg BID (04/29) -mucinex 600 BID -duonebs q4 -mucomyst q6 -lasix 20mg x1 -am CXR -blood serology (-) -f/u blood, urine cxs -ID consult Dr. Keenan 2. r/o ACS -trops (-) x3 -ASA 81mg -echo LVEF 71% 2. Multiple Myeloma -chemo tx w/ Velcade and Revlimid -hold MM tx for now per Dr. Gotti -pt to f/u w/ home onc Dr. Pierre -heme/onc consult Dr. Gotti 3. HTN-stable -Amlodipine 10mg home med held 4. Constipation x8 days -miralax 17g 1x dose -monitor BM and redose PRN 5. Chronic anemia -Hgb stable 10.2 -likely 2/2 MM/tyrell tx -continue to monitor 6. Thrombocytopenia -Plts stable 118 -likely 2/2 MM/tyrell tx -continue to monitor 7. Hypokalemia -K 3.1 -40mg K-dur repletion as needed -am CMP 8. Hyponatremia -Na 130 -pt asymptomatic Ppx -lovenox 40mg -pepcid 20mg Gema Ayoub PGY1 <Shayla Schilling - Last Filed: 04/29/18 20:50> Objective - Vital Signs/Intake and Output Vital Signs (last 24 hours): Temp Pulse Resp BP Pulse Ox 99.4 F 83 20 125/71 95 04/29/18 16:37 04/29/18 16:37 04/29/18 16:37 04/29/18 16:37 04/29/18 16:37 - Medications Medications: Current Medications Acetaminophen (Tylenol 325mg Tab) 650 mg PO Q6 PRN PRN Reason: Fever >100.4 F Acetylcysteine (Acetylcysteine 20%) 4 ml INH RQ6 [facility] Last Admin: 04/29/18 20:02 Dose: Not Given Albuterol/Ipratropium (Duoneb 3 Mg/0.5 Mg (3 Ml) Ud) 3 ml INH RQ4 [facility] Last Admin: 04/29/18 20:01 Dose: 3 ml Aspirin (Aspirin Chewable) 81 mg PO DAILY [facility] Ciprofloxacin (Cipro) 500 mg PO BID [facility] PRN Reason: Protocol Last Admin: 04/29/18 17:23 Dose: 500 mg Enoxaparin Sodium (Lovenox) 40 mg SC DAILY [facility] Last Admin: 04/29/18 09:15 Dose: 40 mg Famotidine (Pepcid) 20 mg PO BID [facility] Last Admin: 04/29/18 17:23 Dose: 20 mg Guaifenesin (Mucinex La) 600 mg PO BID [facility] Last Admin: 04/29/18 17:23 Dose: 600 mg Cefepime HCl (Maxipime Iv 2 Gm Premix) 2 gm in 100 mls @ 200 mls/hr IVPB Q8H [facility] PRN Reason: Protocol Stop: 05/03/18 17:31 Last Admin: 04/29/18 17:30 Dose: 200 mls/hr Ondansetron HCl (Zofran Inj) 4 mg IVP Q6 PRN PRN Reason: Nausea/Vomiting Last Admin: 04/27/18 14:06 Dose: 4 mg - Labs Labs: 04/29/18 07:08 04/29/18 07:08 APTT 26 SECONDS (21-34) 04/28/18 07:21 Attending/Attestation - Attestation I have personally seen and examined this patient.: Yes I have fully participated in the care of the patient.: Yes I have reviewed all pertinent clinical information, including history, physical exam and plan: Yes Notes (Text): Seen and examined by me,more cough,more sob,not feeling good.On examination bilateral rhonchi. Echo results was pending lasix 20mg given 1.Multifocal pneumonia,shortness of breath sputum gram negative rods She is a immuno compromised pt.MM on treatment. Dr Keenan's input appreciated . she increased her cefepime to 2gram 8hrly, Cipro added Patient's pneumonia is not improving.We will ask Dr Medrano for pulmonary consult 2.Multiple myloma follows DR Pierre oncologist Dr Gotti's consult appreciated Hold MM treatment ,start back after her infections resolve 3.Thrombocypopenia-likely due to MM treatment 4.Hypokalemia-replace and follow Assessment and the plan discussed with the resident. I agree with the documentation
[2018-04-29 07:32] LABS: ALB/GLOB RATIO 1.1 (1.0-2.1); ALBUMIN 2.8 g/dL (3.5-5.0); ALT/SGPT 70 U/L (9-52); AST/SGOT 36 U/L (14-36); BLOOD UREA NITROGEN 11 mg/dL (7-17); CALCIUM 7.6 mg/dl (8.6-10.4); GFR AFRICAN-AMERICAN > 60; GFR NON-AFRICAN AMERICAN > 60
[2018-04-29 07:34] LABS: HEMOGLOBIN 10.2 g/dL (11.0-16.0); MEAN CELL VOLUME 71.1 fL (81.0-99.0); MEAN CORPUSCULAR HEMOGLOBIN 23.2 pg (27.0-31.0); MEAN CORPUSCULAR HGB CONC 32.7 g/dL (33.0-37.0); MEAN PLATELET VOLUME 11.2 fL (7.2-11.7); RBC 4.38 Mil/uL (3.80-5.20); RED CELL DISTRIBUTION WIDTH 15.1 % (11.5-14.5); WHITE BLOOD COUNT 7.3 K/uL (4.8-10.8)
[2018-04-29 07:35] LABS: PLATELET COUNT 118 K/uL (130-400)
[2018-04-29] MEDS ORDERED: Potassium Chloride 20 mEq ER Tab PO ONE (08:24)
[2018-04-29] MEDS: Enoxaparin 40 mg Syringe SC SCH (09:15)
[2018-04-29] MEDS: guaiFENesin 600 mg ER Tab PO SCH ×2 (09:16→17:23)
[2018-04-29 09:23] LABS: EOS # 0.1 K/uL (0.0-0.7); LYMPH # 0.3 K/uL (1.0-4.3); MONO # 0.8 K/uL (0.0-0.8); NEUT # 6.1 K/uL (1.8-7.0)
[2018-04-29 09:29] LABS: BANDS 1 % (0-2); LYMPHOCYTE 5 % (20-40); MONOCYTE 22 % (0-10); NEUTROPHIL 72 % (50-75); NUCLEATED RED BLOOD CELL 1 % (0-0); TOTAL CELLS COUNTED 100
[2018-04-29 09:30] LABS: PLATELET ESTIMATE SLIGHTLY DECREASED (NORMAL)
[2018-04-29 09:31] LABS: ANISOCYTOSIS SLIGHT; HYPOCHROMIC SLIGHT; OVALOCYTES SLIGHT; POIKILOCYTOSIS SLIGHT; TARGET CELLS SLIGHT
[2018-04-29] MEDS ORDERED: POLYETHYLENE GLYCOL 3350 17 GM/Dose PACKET PO STA (11:43)
--- NOTE | 2018-04-29 16:52 | CARD ---
APPROVED REPORT Date of service: 04/29/2018 EXAM: Two-dimensional and M-mode echocardiogram with Doppler and color Doppler. Other Information Quality : GoodRhythm : INDICATION Dyspnea Infection: Congestive Heart Failure RISK FACTORS Hypertension 2D DIMENSIONS IVSd0.9 (0.7-1.1cm)LVDd4.1 (3.9-5.9cm) PWd0.9 (0.7-1.1cm)LVEF (%)65.0 (>50%) M-Mode DIMENSIONS Left Atrium (MM)3.25 (2.5-4.0cm)IVSd0.80 (0.7-1.1cm) Aortic Root2.57 (2.2-3.7cm)LVDd4.21 (4.0-5.6cm) Aortic Cusp Exc.1.93 (1.5-2.0cm)PWd0.77 (0.7-1.1cm) IVSs2.69 cmFS (%) 40 % LVDs2.52 (2.0-3.8cm)PWs65.00 cm LVEF (%)71 (>50%) Mitral Valve MV E Fmtasixj30.8cm/sMV DECEL [id number] A Udpytryj969.0cm/s E/A ratio0.7 TDI E/Lateral E'0.0E/Medial E'0.0 Tricuspid Valve TR Peak Cqvvluat231xi/sTR Peak Gr.[id number] <Conclusion> poor window. nomal size la,lv & ra rv. normal lv wall motion,thickness & systolic function with lvef of 60-65%. lv diatolic dysfunciton grade one. sclerotic trileaflet aortic valve. normqal mitral,tv & pv. mild mr,tr & pi with calcullated pulmonary systolic pressures of 37 mm of hg,c/w mild pulmonary hypertension. no pericardial effusion seemn. normal size sclerotic aortic root.
--- NOTE | 2018-04-29 18:00 | CP.PCM.PN ---
Subjective - Date & Time of Evaluation Date of Evaluation: 04/28/18 Time of Evaluation: 19:00 - Subjective Subjective: Has cough Objective - Vital Signs/Intake and Output Vital Signs (last 24 hours): Temp Pulse Resp BP Pulse Ox 99.4 F 83 20 125/71 95 04/29/18 16:37 04/29/18 16:37 04/29/18 16:37 04/29/18 16:37 04/29/18 16:37 Intake and Output: 04/29/18 04/29/18 06:59 18:59 Intake Total 2049 Balance 2049 - Medications Medications: Current Medications Acetaminophen (Tylenol 325mg Tab) 650 mg PO Q6 PRN PRN Reason: Fever >100.4 F Acetylcysteine (Acetylcysteine 20%) 4 ml INH RQ6 [facility] Albuterol/Ipratropium (Duoneb 3 Mg/0.5 Mg (3 Ml) Ud) 3 ml INH RQ4 [facility] Last Admin: 04/29/18 16:33 Dose: 3 ml Aspirin (Aspirin Chewable) 81 mg PO DAILY [facility] Ciprofloxacin (Cipro) 500 mg PO BID [facility] PRN Reason: Protocol Last Admin: 04/29/18 17:23 Dose: 500 mg Enoxaparin Sodium (Lovenox) 40 mg SC DAILY [facility] Last Admin: 04/29/18 09:15 Dose: 40 mg Famotidine (Pepcid) 20 mg PO BID [facility] Last Admin: 04/29/18 17:23 Dose: 20 mg Guaifenesin (Mucinex La) 600 mg PO BID [facility] Last Admin: 04/29/18 17:23 Dose: 600 mg Cefepime HCl (Maxipime Iv 2 Gm Premix) 2 gm in 100 mls @ 200 mls/hr IVPB Q8H [facility] PRN Reason: Protocol Stop: 05/03/18 17:31 Last Admin: 04/29/18 09:14 Dose: 200 mls/hr Ondansetron HCl (Zofran Inj) 4 mg IVP Q6 PRN PRN Reason: Nausea/Vomiting Last Admin: 04/27/18 14:06 Dose: 4 mg - Labs Labs: 04/29/18 07:08 04/29/18 07:08 APTT 26 SECONDS (21-34) 04/28/18 07:21 - Head Exam Head Exam: ATRAUMATIC - Eye Exam Eye Exam: Normal appearance - ENT Exam ENT Exam: Mucous Membranes Dry - Respiratory Exam Respiratory Exam: NORMAL BREATHING PATTERN - Cardiovascular Exam Cardiovascular Exam: +S1, +S2 - GI/Abdominal Exam GI & Abdominal Exam: Normal Bowel Sounds Assessment and Plan (1) Thrombocytopenia Assessment & Plan: secondary to recent chemotherapy and multiple myeloma Status: Acute (2) Anemia Assessment & Plan: chronic disease recent chemo multiple myeloma Status: Acute (3) Multiple myeloma Assessment & Plan: chemo on hold until infection cleared outpatient treatment with primary oncologist Status: Acute
--- NOTE | 2018-04-29 18:01 | CP.PCM.PN ---
Subjective - Date & Time of Evaluation Date of Evaluation: 04/29/18 Time of Evaluation: 17:10 - Subjective Subjective: Feeling better Objective - Vital Signs/Intake and Output Vital Signs (last 24 hours): Temp Pulse Resp BP Pulse Ox 99.4 F 83 20 125/71 95 04/29/18 16:37 04/29/18 16:37 04/29/18 16:37 04/29/18 16:37 04/29/18 16:37 Intake and Output: 04/29/18 04/29/18 06:59 18:59 Intake Total 2049 Balance 2049 - Medications Medications: Current Medications Acetaminophen (Tylenol 325mg Tab) 650 mg PO Q6 PRN PRN Reason: Fever >100.4 F Acetylcysteine (Acetylcysteine 20%) 4 ml INH RQ6 [facility] Albuterol/Ipratropium (Duoneb 3 Mg/0.5 Mg (3 Ml) Ud) 3 ml INH RQ4 [facility] Last Admin: 04/29/18 16:33 Dose: 3 ml Aspirin (Aspirin Chewable) 81 mg PO DAILY [facility] Ciprofloxacin (Cipro) 500 mg PO BID [facility] PRN Reason: Protocol Last Admin: 04/29/18 17:23 Dose: 500 mg Enoxaparin Sodium (Lovenox) 40 mg SC DAILY [facility] Last Admin: 04/29/18 09:15 Dose: 40 mg Famotidine (Pepcid) 20 mg PO BID [facility] Last Admin: 04/29/18 17:23 Dose: 20 mg Guaifenesin (Mucinex La) 600 mg PO BID [facility] Last Admin: 04/29/18 17:23 Dose: 600 mg Cefepime HCl (Maxipime Iv 2 Gm Premix) 2 gm in 100 mls @ 200 mls/hr IVPB Q8H [facility] PRN Reason: Protocol Stop: 05/03/18 17:31 Last Admin: 04/29/18 09:14 Dose: 200 mls/hr Ondansetron HCl (Zofran Inj) 4 mg IVP Q6 PRN PRN Reason: Nausea/Vomiting Last Admin: 04/27/18 14:06 Dose: 4 mg - Labs Labs: 04/29/18 07:08 04/29/18 07:08 APTT 26 SECONDS (21-34) 04/28/18 07:21 - Head Exam Head Exam: ATRAUMATIC - Eye Exam Eye Exam: Normal appearance - ENT Exam ENT Exam: Mucous Membranes Dry - Respiratory Exam Respiratory Exam: NORMAL BREATHING PATTERN - Cardiovascular Exam Cardiovascular Exam: +S1, +S2 - GI/Abdominal Exam GI & Abdominal Exam: Normal Bowel Sounds Assessment and Plan (1) Thrombocytopenia Assessment & Plan: improving secondary to chemotherapy Status: Acute (2) Anemia Assessment & Plan: chronic disease recent chemotherapy multiple myeloma Status: Acute (3) Multiple myeloma Assessment & Plan: outpatient treatment with primary oncologist once clear of infection Status: Acute
--- NOTE | 2018-04-29 19:09 | CP.PCM.CON ---
History of Present Illness - History of Present Illness History of Present Illness: reason for consultation: shortness of breath and cough 77-year-old female with multiple myeloma/hypertension presented to emergency room with worsening shortness of breath, cough and wheezing. Cough productive of yellowish phlegm associated with chills, weakness and loss of appetite. Patient started on IV antibiotics with diagnosis of pneumonia. 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 Patient is currently unemployed, and lives with her son Medications: Amlodipine 10mg, Revlimid 25 mg PO daily for 21 days then stop 7 days Review of Systems - Review of Systems All systems: reviewed and no additional remarkable complaints except (shortness of breath and cough) Past Patient History - Past Medical History & Family History Past Medical History?: Yes - Past Social History Smoking Status: Never Smoked - CARDIAC Hx Congestive Heart Failure: No Hx Hypertension: Yes - PULMONARY Hx Asthma: No Hx Chronic Obstructive Pulmonary Disease (COPD): No - HEMATOLOGICAL/ONCOLOGICAL Hx Cancer: Yes Hx Chemotherapy: Yes - INTEGUMENTARY Hx Melanoma: Yes - MUSCULOSKELETAL/RHEUMATOLOGICAL Hx Falls: No - GENITOURINARY/GYNECOLOGICAL Hx Urinary Tract Infection: Yes - PSYCHIATRIC Hx Substance Use: No - ANESTHESIA Hx Anesthesia: No Meds Allergies/Adverse Reactions: Allergies Allergy/AdvReac Type Severity Reaction Status Date / Time No Known Allergies Allergy Verified 04/27/18 09:35 - Medications Medications: Current Medications Acetaminophen (Tylenol 325mg Tab) 650 mg PO Q6 PRN PRN Reason: Fever >100.4 F Acetylcysteine (Acetylcysteine 20%) 4 ml INH RQ6 [facility] Albuterol/Ipratropium (Duoneb 3 Mg/0.5 Mg (3 Ml) Ud) 3 ml INH RQ4 [facility] Last Admin: 04/29/18 16:33 Dose: 3 ml Aspirin (Aspirin Chewable) 81 mg PO DAILY [facility] Ciprofloxacin (Cipro) 500 mg PO BID [facility] PRN Reason: Protocol Last Admin: 04/29/18 17:23 Dose: 500 mg Enoxaparin Sodium (Lovenox) 40 mg SC DAILY [facility] Last Admin: 04/29/18 09:15 Dose: 40 mg Famotidine (Pepcid) 20 mg PO BID [facility] Last Admin: 04/29/18 17:23 Dose: 20 mg Guaifenesin (Mucinex La) 600 mg PO BID [facility] Last Admin: 04/29/18 17:23 Dose: 600 mg Cefepime HCl (Maxipime Iv 2 Gm Premix) 2 gm in 100 mls @ 200 mls/hr IVPB Q8H [facility] PRN Reason: Protocol Stop: 05/03/18 17:31 Last Admin: 04/29/18 17:30 Dose: 200 mls/hr Ondansetron HCl (Zofran Inj) 4 mg IVP Q6 PRN PRN Reason: Nausea/Vomiting Last Admin: 04/27/18 14:06 Dose: 4 mg Physical Exam - Head Exam Head Exam: ATRAUMATIC, NORMOCEPHALIC - Eye Exam Eye Exam: Normal appearance - ENT Exam ENT Exam: Mucous Membranes Moist - Neck Exam Neck exam: Positive for: Normal Inspection - Respiratory Exam Respiratory Exam: Rales, Rhonchi, Wheezes - Cardiovascular Exam Cardiovascular Exam: REGULAR RHYTHM - GI/Abdominal Exam GI & Abdominal Exam: Normal Bowel Sounds, Soft - Extremities Exam Extremities exam: Positive for: normal inspection - Neurological Exam Neurological exam: Alert, Oriented x3 Results - Vital Signs Recent Vital Signs: Last Vital Signs Temp 99.4 F 04/29/18 16:37 Pulse 83 04/29/18 16:37 Resp 20 04/29/18 16:37 BP 125/71 04/29/18 16:37 Pulse Ox 95 04/29/18 16:37 - Labs Result Diagrams: 04/30/18 08:40 04/30/18 08:40 Labs: Laboratory Results - last 24 hr 04/28/18 04/29/18 04/29/18 07:21 07:08 07:08 WBC 7.3 RBC 4.38 Hgb 10.2 L Hct 31.1 L MCV 71.1 L MCH 23.2 L MCHC 32.7 L RDW 15.1 H Plt Count 118 L D MPV 11.2 Neut % (Auto) 84.0 H Lymph % (Auto) 4.0 L [place] % (Auto) 11.0 H Eos % (Auto) 1.0 Baso % (Auto) 0.0 Neut # (Auto) 6.1 Lymph # (Auto) 0.3 L [place] # (Auto) 0.8 Eos # (Auto) 0.1 Baso # (Auto) 0.0 Neutrophils % (Manual) 72 Band Neutrophils % 1 Lymphocytes % (Manual) 5 L Monocytes % (Manual) 22 H Nucleated RBC % 1 H Platelet Estimate Slightly decreased L Hypochromasia (manual) Slight Poikilocytosis (manual Slight Anisocytosis (manual) Slight Macrocytosis (manual) Slight Target Cells Slight Ovalocytes Slight Hemoglobinopathy Red Blood Count 4.41 Hemoglobinopathy Hct 31.5 L Hemoglobinopathy Hgb 10.2 L Hemoglobinopathy MCV 71.5 L Hemoglobinopathy MCH 23.1 L Hemoglobinopathy RDW 16.0 H Sodium 130 L Potassium 3.1 L Chloride 97 L Carbon Dioxide 25 Anion Gap 11 BUN 11 Creatinine 0.8 Est GFR ( Amer) > 60 Est GFR (Non-Af Amer) > 60 Random Glucose 78 Calcium 7.6 L Phosphorus 2.8 Magnesium 1.9 Total Bilirubin 1.0 AST 36 ALT 70 H Alkaline Phosphatase 81 Total Protein 5.3 L Albumin 2.8 L Globulin 2.5 Albumin/Globulin Ratio 1.1 Vancomycin Trough 04/29/18 14:22 WBC RBC Hgb Hct MCV MCH MCHC RDW Plt Count MPV Neut % (Auto) Lymph % (Auto) [place] % (Auto) Eos % (Auto) Baso % (Auto) Neut # (Auto) Lymph # (Auto) [place] # (Auto) Eos # (Auto) Baso # (Auto) Neutrophils % (Manual) Band Neutrophils % Lymphocytes % (Manual) Monocytes % (Manual) Nucleated RBC % Platelet Estimate Hypochromasia (manual) Poikilocytosis (manual Anisocytosis (manual) Macrocytosis (manual) Target Cells Ovalocytes Hemoglobinopathy Red Blood Count Hemoglobinopathy Hct Hemoglobinopathy Hgb Hemoglobinopathy MCV Hemoglobinopathy MCH Hemoglobinopathy RDW Sodium Potassium Chloride Carbon Dioxide Anion Gap BUN Creatinine Est GFR ( Amer) Est GFR (Non-Af Amer) Random Glucose Calcium Phosphorus Magnesium Total Bilirubin AST ALT Alkaline Phosphatase Total Protein Albumin Globulin Albumin/Globulin Ratio Vancomycin Trough 12.7 H Assessment & Plan (1) Pneumonia Status: Acute Comment: 77-year-old female presented with shortness of breath and cough. Chest x-ray consistent with multifocal infiltrate. Continue antibiotics. Follow-up culture and sensitivity. Nebulizer treatment. Antitussive (2) Multiple myeloma Status: Acute
[2018-04-29] MEDS: Acetylcysteine 20% Inhal Soln (4ml) INH SCH (20:02)
--- NOTE | 2018-04-29 22:57 | CP.PCM.PN ---
Subjective - Date & Time of Evaluation Date of Evaluation: 04/29/18 Time of Evaluation: 03:15 - Subjective Subjective: dictated Objective - Vital Signs/Intake and Output Vital Signs (last 24 hours): Temp Pulse Resp BP Pulse Ox 99.4 F 83 20 125/71 95 04/29/18 16:37 04/29/18 16:37 04/29/18 16:37 04/29/18 16:37 04/29/18 16:37 Intake and Output: 04/29/18 04/30/18 18:59 06:59 Intake Total 250 Balance 250 - Medications Medications: Current Medications Acetaminophen (Tylenol 325mg Tab) 650 mg PO Q6 PRN PRN Reason: Fever >100.4 F Acetylcysteine (Acetylcysteine 20%) 4 ml INH RQ6 [facility] Last Admin: 04/29/18 20:02 Dose: Not Given Albuterol/Ipratropium (Duoneb 3 Mg/0.5 Mg (3 Ml) Ud) 3 ml INH RQ4 [facility] Last Admin: 04/29/18 20:01 Dose: 3 ml Aspirin (Aspirin Chewable) 81 mg PO DAILY [facility] Ciprofloxacin (Cipro) 500 mg PO BID [facility] PRN Reason: Protocol Last Admin: 04/29/18 17:23 Dose: 500 mg Enoxaparin Sodium (Lovenox) 40 mg SC DAILY [facility] Last Admin: 04/29/18 09:15 Dose: 40 mg Famotidine (Pepcid) 20 mg PO BID [facility] Last Admin: 04/29/18 17:23 Dose: 20 mg Guaifenesin (Mucinex La) 600 mg PO BID [facility] Last Admin: 04/29/18 17:23 Dose: 600 mg Cefepime HCl (Maxipime Iv 2 Gm Premix) 2 gm in 100 mls @ 200 mls/hr IVPB Q8H [facility] PRN Reason: Protocol Stop: 05/03/18 17:31 Last Admin: 04/29/18 17:30 Dose: 200 mls/hr Ondansetron HCl (Zofran Inj) 4 mg IVP Q6 PRN PRN Reason: Nausea/Vomiting Last Admin: 04/27/18 14:06 Dose: 4 mg - Labs Labs: 04/29/18 07:08 04/29/18 07:08 APTT 26 SECONDS (21-34) 04/28/18 07:21
[2018-04-30] MEDS: Albuterol-Ipratrop 3 mg / 0.5 (3 ml) UD INH SCH ×7 (01:07→19:13)
[2018-04-30] MEDS: Acetylcysteine 20% Inhal Soln (4ml) INH SCH ×6 (01:08→19:13)
[2018-04-30] MEDS: Cefepime IV 2 gm in Dextrose 2 GM/100 ML BAG IVPB SCH ×3 (01:31→17:31)
--- NOTE | 2018-04-30 04:57 | PN ---
Copied To: Celestine Keenan MD Attending MD: Celestine Keenan MD DATE: 04/29/2018 SUBJECTIVE: She was not coughing as much but did not look any better. She looked very congested and was not improving much it seems, but her cough was less. She denied any other complains. Her IV site was poor. PHYSICAL EXAMINATION: VITAL SIGNS: T-max was 99.7 today and blood pressure of 125/71, pulse is 83, respirations are 20. HEENT: Head is atraumatic and normocephalic. NECK: Supple. LUNGS: Bilateral crackles and wheezing. HEART: S1 and S2 are regular. ABDOMEN: Soft, nontender. No guarding, no rigidity present. EXTREMITIES: No edema. LABORATORY DATA: White count is 7.3, hemoglobin 10.2, hematocrit 31.1, and platelet count is 118. It is low. Potassium was 3.1. Sodium 130, it is being supplemented. ALT was 70. ASSESSMENT AND PLAN: The patient's chest CT yesterday showed no evidence of acute pulmonary embolism, scattered nodular opacity, and small consolidation at mid and lower lung representing multifocal infectious process or less likely aspiration, small bilateral pleural effusion, slightly larger on the right. She does have bilateral infiltrates, possible aspiration, possible multifocal infectious. Actually, it is infectious because it grew Enterobacter cloacae in the sputum, is gram-negative pneumonia bilateral, and so I have discontinued vancomycin and started Cipro p.o. and will have the Maxipime on board and will follow with the boat fueler. Consult has been requested. Her other medications, she is off the fluids at this time. She is on nebulizer, aspirin, cefepime 2 g every 8 hours, just started Cipro p.o., discontinued vancomycin. Continue Lovenox and continue cough syrup and will follow. Dr. Gotti is following for the multiple myeloma and thrombocytopenia, and she was on thalidomide treatment, so they put chemotherapy on hold until the infection clears. Celestine Keenan MD
--- NOTE | 2018-04-30 07:15 | CP.PCM.PN ---
Subjective - Date & Time of Evaluation Date of Evaluation: 04/30/18 Time of Evaluation: 09:25 - Subjective Subjective: .77 yo F w/ PMHx of MM and HTN, admitted w/ PNA. Pt seen and examined at bedside. Patient reports worsening cough, chest pain w/ deep inspiration, malaise since yesterday Objective - Vital Signs/Intake and Output Vital Signs (last 24 hours): Temp Pulse Resp BP Pulse Ox 98.7 F 85 20 133/68 97 04/29/18 23:53 04/29/18 23:53 04/29/18 23:53 04/29/18 23:53 04/29/18 23:53 Intake and Output: 04/30/18 04/30/18 06:59 18:59 Intake Total 450 Balance 450 - Medications Medications: Current Medications Acetaminophen (Tylenol 325mg Tab) 650 mg PO Q6 PRN PRN Reason: Fever >100.4 F Acetylcysteine (Acetylcysteine 20%) 4 ml INH RQ6 [facility] Last Admin: 04/30/18 01:47 Dose: 4 ml Albuterol/Ipratropium (Duoneb 3 Mg/0.5 Mg (3 Ml) Ud) 3 ml INH RQ4 [facility] Last Admin: 04/30/18 04:39 Dose: 3 ml Aspirin (Aspirin Chewable) 81 mg PO DAILY [facility] Ciprofloxacin (Cipro) 500 mg PO BID [facility] PRN Reason: Protocol Last Admin: 04/29/18 17:23 Dose: 500 mg Enoxaparin Sodium (Lovenox) 40 mg SC DAILY [facility] Last Admin: 04/29/18 09:15 Dose: 40 mg Famotidine (Pepcid) 20 mg PO BID [facility] Last Admin: 04/29/18 17:23 Dose: 20 mg Guaifenesin (Mucinex La) 600 mg PO BID [facility] Last Admin: 04/29/18 17:23 Dose: 600 mg Cefepime HCl (Maxipime Iv 2 Gm Premix) 2 gm in 100 mls @ 200 mls/hr IVPB Q8H [facility] PRN Reason: Protocol Stop: 05/03/18 17:31 Last Admin: 04/30/18 01:31 Dose: 200 mls/hr Ondansetron HCl (Zofran Inj) 4 mg IVP Q6 PRN PRN Reason: Nausea/Vomiting Last Admin: 04/27/18 14:06 Dose: 4 mg - Labs Labs: 04/29/18 07:08 04/29/18 07:08 APTT 26 SECONDS (21-34) 04/28/18 07:21 - Constitutional Appears: Non-toxic, No Acute Distress - Head Exam Head Exam: ATRAUMATIC, NORMAL INSPECTION, NORMOCEPHALIC - Eye Exam Eye Exam: EOMI Pupil Exam: PERRL - ENT Exam ENT Exam: Mucous Membranes Moist - Respiratory Exam Respiratory Exam: Rhonchi, NORMAL BREATHING PATTERN - Cardiovascular Exam Cardiovascular Exam: REGULAR RHYTHM - GI/Abdominal Exam GI & Abdominal Exam: Soft, Normal Bowel Sounds - Extremities Exam Extremities Exam: Normal Capillary Refill. absent: Calf Tenderness, Pedal Edema - Neurological Exam Neurological Exam: Alert - Skin Skin Exam: Normal Color Assessment and Plan - Assessment and Plan (Free Text) Assessment: 77 yo F admitted w/ PNA 1. PNA-CAP -sputum cx + Enterobacter Cloacae -cefepime 2g q8 (04/28) -cipro 500mg BID (04/29) -mucinex 600 BID -duonebs q4 -mucomyst q6 -lasix 20mg x1 -am CXR -blood serology (-) -f/u blood, urine cxs -ID consult Dr. Keenan 2. r/o ACS -trops (-) x3 -ASA 81mg -echo LVEF 71% 2. Multiple Myeloma -chemo tx w/ Velcade and Revlimid -hold MM tx for now per Dr. Gotti -pt to f/u w/ home onc Dr. Pierre -heme/onc consult Dr. Gotti 3. HTN-stable -Amlodipine 10mg home med held 4. Constipation x8 days -fleet enema -simethicone -monitor BM and redose PRN 5. Chronic anemia -Hgb stable 10.6 -likely 2/2 MM/chemo tx -continue to monitor 6. Thrombocytopenia -Plts stable 118 -likely 2/2 MM/tyrell tx -continue to monitor 7. Hypokalemia -K 3.2 -40mg K-dur repletion as needed -am CMP 8. Hyponatremia -Na 133 -pt asymptomatic Ppx -lovenox 40mg -pepcid 20mg Gema Ayoub PGY1
--- NOTE | 2018-04-30 08:16 | RAD ---
Date of service: 04/30/2018 HISTORY: pneumonia COMPARISON: Portable chest 04/29/2018. FINDINGS: LUNGS: Did fill infiltrate is felt to present the right base though given sharp border superiorly, elevation of right hemidiaphragm may also be present further. Borderline patchy density left perihilar region. PLEURA: Mild right pleural effusion is not excluded though the medial right costophrenic sulcus is sharp. No left pleural effusion. No pneumothorax bilaterally. CARDIOVASCULAR: Stable cardiac silhouette. No definite pulmonary vascular congestion. OSSEOUS STRUCTURES: No significant abnormalities. VISUALIZED UPPER ABDOMEN: Normal. OTHER FINDINGS: None. IMPRESSION: Increasing airspace disease right base with right hemidiaphragm elevation in question. Minimal right pleural effusion present. Borderline airspace disease left perihilar region.
--- NOTE | 2018-04-30 08:34 | RAD ---
Date of service: 04/29/2018 HISTORY: pneumonia COMPARISON: Portable chest 04/27/2018. FINDINGS: LUNGS: Diminished pulmonary volume identified. Developing atelectasis or infiltrate is suggested at the mid to inferior right lung zone with none identified at the left. Reticular markings remain slightly increased at right base, though not as prominent as previously seen. PLEURA: No significant pleural effusion identified, no pneumothorax apparent. CARDIOVASCULAR: Normal. OSSEOUS STRUCTURES: No significant abnormalities. VISUALIZED UPPER ABDOMEN: Normal. OTHER FINDINGS: None. IMPRESSION: Developing alveolar infiltrate or atelectasis is suggested at the right base with limited residual reticular markings remaining though not as prominent as previously seen. Left hemithorax remains clear. No pulmonary vascular congestion or cardiomegaly evident.
[2018-04-30 09:01] LABS: HEMOGLOBIN 10.6 g/dL (11.0-16.0); MEAN CORPUSCULAR HEMOGLOBIN 23.8 pg (27.0-31.0); MEAN CORPUSCULAR HGB CONC 33.5 g/dL (33.0-37.0); MEAN PLATELET VOLUME 9.9 fL (7.2-11.7); PLATELET COUNT 189 K/uL (130-400); RBC 4.48 Mil/uL (3.80-5.20)
[2018-04-30 09:15] LABS: ALB/GLOB RATIO 1.2 (1.0-2.1); ALBUMIN 3.1 g/dL (3.5-5.0); ALT/SGPT 72 U/L (9-52); AST/SGOT 40 U/L (14-36); BLOOD UREA NITROGEN 10 mg/dL (7-17); CALCIUM 8.2 mg/dl (8.6-10.4); GFR AFRICAN-AMERICAN > 60; GFR NON-AFRICAN AMERICAN 54
[2018-04-30] MEDS: guaiFENesin 600 mg ER Tab PO SCH ×2 (09:16→17:31)
[2018-04-30] MEDS: Enoxaparin 40 mg Syringe SC SCH (09:16)
[2018-04-30 09:50] LABS: EOS # 0.1 K/uL (0.0-0.7); LYMPH # 0.4 K/uL (1.0-4.3); MONO # 1.8 K/uL (0.0-0.8); NEUT # 4.7 K/uL (1.8-7.0)
[2018-04-30 09:55] LABS: ANISOCYTOSIS SLIGHT; EOSINOPHIL 2 % (0-4); HYPOCHROMIC SLIGHT; LYMPHOCYTE 9 % (20-40); MONOCYTE 23 % (0-10); NEUTROPHIL 66 % (50-75); PLATELET ESTIMATE NORMAL (NORMAL); POIKILOCYTOSIS SLIGHT; TOTAL CELLS COUNTED 100
[2018-04-30 09:56] LABS: TARGET CELLS SLIGHT; TEARDROP CELLS SLIGHT
[2018-04-30] MEDS ORDERED: Potassium Chloride 20 mEq ER Tab PO ONE (10:06)
--- NOTE | 2018-04-30 12:22 | CP.PCM.PN ---
Subjective - Date & Time of Evaluation Date of Evaluation: 04/30/18 Time of Evaluation: 12:00 - Subjective Subjective: dictated Objective - Vital Signs/Intake and Output Vital Signs (last 24 hours): Temp Pulse Resp BP Pulse Ox 98.1 F 82 20 154/70 H 97 04/30/18 07:49 04/30/18 07:49 04/30/18 07:49 04/30/18 07:49 04/30/18 07:49 Intake and Output: 04/30/18 04/30/18 06:59 18:59 Intake Total 450 Balance 450 - Medications Medications: Current Medications Acetaminophen (Tylenol 325mg Tab) 650 mg PO Q6 PRN PRN Reason: Fever >100.4 F Acetylcysteine (Acetylcysteine 20%) 4 ml INH RQ6 [facility] Last Admin: 04/30/18 11:29 Dose: 4 ml Albuterol/Ipratropium (Duoneb 3 Mg/0.5 Mg (3 Ml) Ud) 3 ml INH RQ4 [facility] Last Admin: 04/30/18 11:29 Dose: 3 ml Aspirin (Aspirin Chewable) 81 mg PO DAILY [facility] Last Admin: 04/30/18 09:16 Dose: 81 mg Ciprofloxacin (Cipro) 500 mg PO BID [facility] PRN Reason: Protocol Last Admin: 04/30/18 09:16 Dose: 500 mg Enoxaparin Sodium (Lovenox) 40 mg SC DAILY [facility] Last Admin: 04/30/18 09:16 Dose: 40 mg Famotidine (Pepcid) 20 mg PO BID [facility] Last Admin: 04/30/18 09:16 Dose: 20 mg Guaifenesin (Mucinex La) 600 mg PO BID [facility] Last Admin: 04/30/18 09:16 Dose: 600 mg Cefepime HCl (Maxipime Iv 2 Gm Premix) 2 gm in 100 mls @ 200 mls/hr IVPB Q8H [facility] PRN Reason: Protocol Stop: 05/03/18 17:31 Last Admin: 04/30/18 09:16 Dose: 200 mls/hr Ondansetron HCl (Zofran Inj) 4 mg IVP Q6 PRN PRN Reason: Nausea/Vomiting Last Admin: 04/27/18 14:06 Dose: 4 mg - Labs Labs: 04/30/18 08:40 04/30/18 08:40 APTT 26 SECONDS (21-34) 04/28/18 07:21
[2018-04-30] MEDS ORDERED: Simethicone 80 mg Chewtab PO ONE (15:51)
--- NOTE | 2018-04-30 15:58 | CP.PCM.PN ---
Subjective - Date & Time of Evaluation Date of Evaluation: 04/30/18 Time of Evaluation: 10:00 - Subjective Subjective: Patient seen and examined Still has shortness of breath and cough Afebrile Patient is awake and responsive Objective - Vital Signs/Intake and Output Vital Signs (last 24 hours): Temp Pulse Resp BP Pulse Ox 98.1 F 82 20 154/70 H 97 04/30/18 07:49 04/30/18 07:49 04/30/18 07:49 04/30/18 07:49 04/30/18 07:49 Intake and Output: 04/30/18 04/30/18 06:59 18:59 Intake Total 450 Balance 450 - Medications Medications: Current Medications Acetaminophen (Tylenol 325mg Tab) 650 mg PO Q6 PRN PRN Reason: Fever >100.4 F Acetylcysteine (Acetylcysteine 20%) 4 ml INH RQ6 [facility] Last Admin: 04/30/18 11:29 Dose: 4 ml Albuterol/Ipratropium (Duoneb 3 Mg/0.5 Mg (3 Ml) Ud) 3 ml INH RQ4 [facility] Last Admin: 04/30/18 15:52 Dose: 3 ml Aspirin (Aspirin Chewable) 81 mg PO DAILY [facility] Last Admin: 04/30/18 09:16 Dose: 81 mg Ciprofloxacin (Cipro) 500 mg PO BID [facility] PRN Reason: Protocol Last Admin: 04/30/18 09:16 Dose: 500 mg Enoxaparin Sodium (Lovenox) 40 mg SC DAILY [facility] Last Admin: 04/30/18 09:16 Dose: 40 mg Famotidine (Pepcid) 20 mg PO BID [facility] Last Admin: 04/30/18 09:16 Dose: 20 mg Guaifenesin (Mucinex La) 600 mg PO BID [facility] Last Admin: 04/30/18 09:16 Dose: 600 mg Cefepime HCl (Maxipime Iv 2 Gm Premix) 2 gm in 100 mls @ 200 mls/hr IVPB Q8H [facility] PRN Reason: Protocol Stop: 05/03/18 17:31 Last Admin: 04/30/18 09:16 Dose: 200 mls/hr Lactobacillus Acidophilus (Bacid Acidophilus) 1 cap PO BID [facility] Ondansetron HCl (Zofran Inj) 4 mg IVP Q6 PRN PRN Reason: Nausea/Vomiting Last Admin: 04/27/18 14:06 Dose: 4 mg - Labs Labs: 04/30/18 08:40 04/30/18 08:40 APTT 26 SECONDS (21-34) 04/28/18 07:21 - Head Exam Head Exam: ATRAUMATIC, NORMOCEPHALIC - Eye Exam Eye Exam: Normal appearance - ENT Exam ENT Exam: Mucous Membranes Moist - Neck Exam Neck Exam: Normal Inspection - Respiratory Exam Respiratory Exam: Rhonchi, Wheezes - Cardiovascular Exam Cardiovascular Exam: REGULAR RHYTHM - GI/Abdominal Exam GI & Abdominal Exam: Soft, Normal Bowel Sounds - Extremities Exam Extremities Exam: Normal Inspection - Neurological Exam Neurological Exam: Alert Assessment and Plan (1) Pneumonia Assessment & Plan: follow-up chest x-ray Continue antibiotics Continue nebulizer treatment nodules on CAT scan r chest most likely secondary to multiple myeloma Status: Acute (2) Multiple myeloma Status: Acute
[2018-04-30 15:59] LABS: HEMOGLOBIN A 96.7 Percent (>96.0); HEMOGLOBIN A2 2.3 Percent (1.8-3.5)
[2018-04-30] MEDS: Lactobacillus Acidophilus 500 MU Cap PO SCH (17:31)
--- NOTE | 2018-04-30 18:04 | PN ---
Copied To: Celestine Keenan MD Attending MD: Celestine Keenan MD DATE: 04/30/2018 SUBJECTIVE: I went to see the patient. She is still having cough. She is trying to eat. She says she has no appetite and is still coughing, but she feels slightly better. She is constipated. We are going to give her enema later. She feels she was in the [facility] room. She says she is very constipated. Denies any urinary symptoms. Denies any vomiting. Feels slightly better. PHYSICAL EXAMINATION: VITAL SIGNS: T-max is 98.1, pulse 82, blood pressure is 154/70, respirations are 20. HEENT: Head is atraumatic, normocephalic. NECK: Supple and she is eating right now. LUNGS: Bilateral rhonchi and crackles. Still sounds bad. HEART: S1 and S2 are regular. ABDOMEN: Soft, nontender. No guarding. No rigidity present. EXTREMITIES: Have no edema, clubbing or cyanosis. LABORATORY DATA: Labs are noted. Labs show white count is 7 today, hemoglobin 10.6, hematocrit 31.8, platelet count is 189. She never mounted a white count; however, she has Enterobacter cloacae in the sputum. Sodium is 133, potassium still remains low at 3.2, hemoglobin is 96, carbon dioxide 30, creatinine is 1. I have left her on coverage for now and once she starts to improve, we will switch [place]ipro [place] 0138, but I think she needs a little more time, may be towards the end of the weekend and hopefully she will improve and we will also follow up pulmonary recommendations. X-ray done today only task about worsening of the infiltrate, but I did change the antibiotic recently, which is just on the 04/28/2018, so I still want to see the response to these given cefepime every 8 hours and Cipro 500 b.i.d. and we will leave her on Pepcid also and we will follow recommendations of the pulmonary and she is getting respiratory treatment and she has also immunosuppression. We will follow. Celestine Keenan MD
--- NOTE | 2018-04-30 19:58 | CP.PCM.PN ---
Subjective - Date & Time of Evaluation Date of Evaluation: 04/30/18 Time of Evaluation: 12:00 - Subjective Subjective: Still has periods of strong cough Objective - Vital Signs/Intake and Output Vital Signs (last 24 hours): Temp Pulse Resp BP Pulse Ox 98.2 F 78 20 136/78 100 04/30/18 16:00 04/30/18 16:00 04/30/18 16:00 04/30/18 16:00 04/30/18 16:00 - Medications Medications: Current Medications Acetaminophen (Tylenol 325mg Tab) 650 mg PO Q6 PRN PRN Reason: Fever >100.4 F Acetylcysteine (Acetylcysteine 20%) 4 ml INH RQ6 [facility] Last Admin: 04/30/18 19:13 Dose: 4 ml Albuterol/Ipratropium (Duoneb 3 Mg/0.5 Mg (3 Ml) Ud) 3 ml INH RQ4 [facility] Last Admin: 04/30/18 19:13 Dose: 3 ml Aspirin (Aspirin Chewable) 81 mg PO DAILY [facility] Last Admin: 04/30/18 09:16 Dose: 81 mg Ciprofloxacin (Cipro) 500 mg PO BID [facility] PRN Reason: Protocol Last Admin: 04/30/18 17:31 Dose: 500 mg Enoxaparin Sodium (Lovenox) 40 mg SC DAILY [facility] Last Admin: 04/30/18 09:16 Dose: 40 mg Famotidine (Pepcid) 20 mg PO BID [facility] Last Admin: 04/30/18 17:31 Dose: 20 mg Guaifenesin (Mucinex La) 600 mg PO BID [facility] Last Admin: 04/30/18 17:31 Dose: 600 mg Cefepime HCl (Maxipime Iv 2 Gm Premix) 2 gm in 100 mls @ 200 mls/hr IVPB Q8H [facility] PRN Reason: Protocol Stop: 05/03/18 17:31 Last Admin: 04/30/18 17:31 Dose: 200 mls/hr Lactobacillus Acidophilus (Bacid Acidophilus) 1 cap PO BID [facility] Last Admin: 04/30/18 17:31 Dose: 1 cap Ondansetron HCl (Zofran Inj) 4 mg IVP Q6 PRN PRN Reason: Nausea/Vomiting Last Admin: 04/27/18 14:06 Dose: 4 mg - Labs Labs: 08/01/18 08:40 04/30/18 08:40 APTT 26 SECONDS (21-34) 04/28/18 07:21 - Head Exam Head Exam: ATRAUMATIC - Eye Exam Eye Exam: Normal appearance - ENT Exam ENT Exam: Mucous Membranes Dry - Respiratory Exam Respiratory Exam: NORMAL BREATHING PATTERN - Cardiovascular Exam Cardiovascular Exam: +S1, +S2 - GI/Abdominal Exam GI & Abdominal Exam: Normal Bowel Sounds Assessment and Plan (1) Anemia Assessment & Plan: chronic disease multiple myeloma H/H fairly stable Status: Acute (2) Multiple myeloma Assessment & Plan: outpatient chemotherapy with primary oncologist Status: Acute
[2018-05-01] MEDS: Albuterol-Ipratrop 3 mg / 0.5 (3 ml) UD INH SCH ×6 (01:10→20:36)
[2018-05-01] MEDS: Acetylcysteine 20% Inhal Soln (4ml) INH SCH ×2 (01:12→07:57)
[2018-05-01] MEDS: Cefepime IV 2 gm in Dextrose 2 GM/100 ML BAG IVPB SCH ×3 (01:43→17:27)
--- NOTE | 2018-05-01 06:18 | CP.PCM.PN ---
Subjective - Date & Time of Evaluation Date of Evaluation: 05/01/18 Time of Evaluation: 09:35 - Subjective Subjective: Pt seen and examined at bedside. Pt complains about air conditioning exacerbation her PNA. Pt also states she has failed to have a BM w/ enema overnight. Pt denies chest pain, nausea, vomiting Objective - Vital Signs/Intake and Output Vital Signs (last 24 hours): Temp Pulse Resp BP Pulse Ox 98.6 F 76 20 137/74 96 05/01/18 00:00 05/01/18 00:00 05/01/18 00:00 05/01/18 00:00 05/01/18 00:00 Intake and Output: 04/30/18 05/01/18 18:59 06:59 Intake Total 350 Balance 350 - Medications Medications: Current Medications Acetaminophen (Tylenol 325mg Tab) 650 mg PO Q6 PRN PRN Reason: Fever >100.4 F Acetylcysteine (Acetylcysteine 20%) 4 ml INH RQ6 [facility] Last Admin: 05/01/18 01:12 Dose: 4 ml Albuterol/Ipratropium (Duoneb 3 Mg/0.5 Mg (3 Ml) Ud) 3 ml INH RQ4 [facility] Last Admin: 05/01/18 04:28 Dose: 3 ml Aspirin (Aspirin Chewable) 81 mg PO DAILY [facility] Last Admin: 04/30/18 09:16 Dose: 81 mg Ciprofloxacin (Cipro) 500 mg PO BID [facility] PRN Reason: Protocol Last Admin: 04/30/18 17:31 Dose: 500 mg Enoxaparin Sodium (Lovenox) 40 mg SC DAILY [facility] Last Admin: 04/30/18 09:16 Dose: 40 mg Famotidine (Pepcid) 20 mg PO BID [facility] Last Admin: 04/30/18 17:31 Dose: 20 mg Guaifenesin (Mucinex La) 600 mg PO BID [facility] Last Admin: 04/30/18 17:31 Dose: 600 mg Cefepime HCl (Maxipime Iv 2 Gm Premix) 2 gm in 100 mls @ 200 mls/hr IVPB Q8H [facility] PRN Reason: Protocol Stop: 05/03/18 17:31 Last Admin: 05/01/18 01:43 Dose: 200 mls/hr Lactobacillus Acidophilus (Bacid Acidophilus) 1 cap PO BID [facility] Last Admin: 04/30/18 17:31 Dose: 1 cap Ondansetron HCl (Zofran Inj) 4 mg IVP Q6 PRN PRN Reason: Nausea/Vomiting Last Admin: 04/27/18 14:06 Dose: 4 mg - Labs Labs: 04/30/18 08:40 04/30/18 08:40 APTT 26 SECONDS (21-34) 04/28/18 07:21 - Constitutional Appears: Well, No Acute Distress - Head Exam Head Exam: ATRAUMATIC, NORMAL INSPECTION, NORMOCEPHALIC - Eye Exam Eye Exam: EOMI - ENT Exam ENT Exam: Mucous Membranes Moist - Respiratory Exam Respiratory Exam: Rhonchi, Wheezes. absent: Clear to Ausculation Bilateral - Cardiovascular Exam Cardiovascular Exam: REGULAR RHYTHM - GI/Abdominal Exam GI & Abdominal Exam: Distended, Hyperactive Bowel Sounds - Extremities Exam Extremities Exam: Normal Capillary Refill, Normal Inspection, Pedal Edema. absent: Calf Tenderness - Neurological Exam Neurological Exam: Alert, Awake, Oriented x3 Assessment and Plan - Assessment and Plan (Free Text) Assessment: 1. PNA-CAP -sputum cx + Enterobacter Cloacae -cefepime 2g q8 (04/28) -cipro 500mg BID (04/29) -mucinex 600 BID -duonebs q4 -lasix 20mg x1 -am CXR -blood serology (-) -f/u blood, urine cxs -ID consult Dr. Keenan 2. r/o ACS -trops (-) x3 -ASA 81mg -echo LVEF 71% 2. Multiple Myeloma -chemo tx w/ Velcade and Revlimid -hold MM tx for now per Dr. Gotti -pt to f/u w/ home onc Dr. Pierre -heme/onc consult Dr. Gotti 3. HTN-stable -Amlodipine 10mg 4. Constipation x9 days -lactulose 20mg BID -simethicone -monitor BM and redose PRN 5. Chronic anemia -Hgb stable 10 -likely 2/2 MM/chemo tx -continue to monitor 6. Thrombocytopenia -Plts stable 257 -likely 2/2 MM/tyrell tx -continue to monitor 7. Hypokalemia -K 3.3 -40mg K-dur repletion as needed -am CMP 8. Hyponatremia -Na 134, stable -pt asymptomatic Ppx -lovenox 40mg -pepcid 20mg Dispo: pt to be discharged home to family when PNA shows improvement Gema Ayoub PGY1
[2018-05-01 07:21] LABS: MEAN CELL VOLUME 70.8 fL (81.0-99.0); MEAN CORPUSCULAR HEMOGLOBIN 23.3 pg (27.0-31.0); MEAN CORPUSCULAR HGB CONC 32.9 g/dL (33.0-37.0); MEAN PLATELET VOLUME 9.4 fL (7.2-11.7); RBC 4.29 Mil/uL (3.80-5.20); RED CELL DISTRIBUTION WIDTH 14.8 % (11.5-14.5); WHITE BLOOD COUNT 6.2 K/uL (4.8-10.8)
[2018-05-01 07:33] LABS: ALB/GLOB RATIO 1.1 (1.0-2.1); ALBUMIN 2.9 g/dL (3.5-5.0); ALT/SGPT 66 U/L (9-52); AST/SGOT 41 U/L (14-36); BLOOD UREA NITROGEN 11 mg/dL (7-17); CALCIUM 8.2 mg/dl (8.6-10.4); GFR AFRICAN-AMERICAN > 60; GFR NON-AFRICAN AMERICAN 54
[2018-05-01] MEDS: guaiFENesin 600 mg ER Tab PO SCH (09:34)
[2018-05-01] MEDS: Lactobacillus Acidophilus 500 MU Cap PO SCH ×2 (09:34→17:26)
[2018-05-01] MEDS: Multiple Vitamins Tab PO SCH (09:34)
[2018-05-01] MEDS: Enoxaparin 40 mg Syringe SC SCH (09:34)
[2018-05-01 09:51] LABS: EOS # 0.3 K/uL (0.0-0.7); LYMPH # 0.7 K/uL (1.0-4.3); MONO # 1.2 K/uL (0.0-0.8)
[2018-05-01] MEDS ORDERED: Potassium Chloride 20 mEq ER Tab PO ONE (11:19)
[2018-05-01] MEDS ORDERED: Simethicone 80 mg Chewtab PO ONE (11:20)
--- NOTE | 2018-05-01 11:47 | CP.PCM.PN ---
Subjective - Date & Time of Evaluation Date of Evaluation: 05/01/18 Time of Evaluation: 09:00 - Subjective Subjective: the patient seen and exami Wheezing and cough Afebrile Spoke with family Objective - Vital Signs/Intake and Output Vital Signs (last 24 hours): Temp Pulse Resp BP Pulse Ox 98.9 F 80 20 152/79 H 95 05/01/18 08:47 05/01/18 08:47 05/01/18 08:47 05/01/18 08:47 05/01/18 08:47 Intake and Output: 05/01/18 05/01/18 06:59 18:59 Intake Total 690 Balance 690 - Medications Medications: Current Medications Acetaminophen (Tylenol 325mg Tab) 650 mg PO Q6 PRN PRN Reason: Fever >100.4 F Acetylcysteine (Acetylcysteine 20%) 4 ml INH RQ6 [facility] Last Admin: 05/01/18 07:57 Dose: 4 ml Albuterol/Ipratropium (Duoneb 3 Mg/0.5 Mg (3 Ml) Ud) 3 ml INH RQ4 [facility] Last Admin: 05/01/18 07:57 Dose: 3 ml Aspirin (Aspirin Chewable) 81 mg PO DAILY [facility] Last Admin: 05/01/18 09:34 Dose: 81 mg Ciprofloxacin (Cipro) 500 mg PO BID [facility] PRN Reason: Protocol Last Admin: 05/01/18 09:34 Dose: 500 mg Enoxaparin Sodium (Lovenox) 40 mg SC DAILY [facility] Last Admin: 05/01/18 09:34 Dose: 40 mg Famotidine (Pepcid) 20 mg PO BID [facility] Last Admin: 05/01/18 09:34 Dose: 20 mg Guaifenesin (Mucinex La) 600 mg PO BID [facility] Last Admin: 05/01/18 09:34 Dose: 600 mg Cefepime HCl (Maxipime Iv 2 Gm Premix) 2 gm in 100 mls @ 200 mls/hr IVPB Q8H [facility] PRN Reason: Protocol Stop: 05/03/18 17:31 Last Admin: 05/01/18 08:31 Dose: 200 mls/hr Lactobacillus Acidophilus (Bacid Acidophilus) 1 cap PO BID [facility] Last Admin: 05/01/18 09:34 Dose: 1 cap Multivitamins (Hexavitamin) 1 tab PO DAILY [facility] Last Admin: 05/01/18 09:34 Dose: 1 tab Ondansetron HCl (Zofran Inj) 4 mg IVP Q6 PRN PRN Reason: Nausea/Vomiting Last Admin: 04/27/18 14:06 Dose: 4 mg - Labs Labs: 05/01/18 06:52 05/01/18 06:52 APTT 26 SECONDS (21-34) 04/28/18 07:21 - Head Exam Head Exam: ATRAUMATIC, NORMOCEPHALIC - ENT Exam ENT Exam: Mucous Membranes Moist - Neck Exam Neck Exam: Normal Inspection - Respiratory Exam Respiratory Exam: Rhonchi, Wheezes - GI/Abdominal Exam GI & Abdominal Exam: Soft, Normal Bowel Sounds Assessment and Plan (1) Pneumonia Assessment & Plan: continue the same treatment plan Nebulizer treatment/antibiotics and steroids Status: Acute (2) Multiple myeloma Status: Acute
[2018-05-01] MEDS ORDERED: Promethazine DM 6.25 mg-15 mg/5 ml Syrup PO PRN (11:58)
[2018-05-01] MEDS: MethylPREDNISolone 40 mg Vial IVP SCH ×2 (13:30→21:17)
--- NOTE | 2018-05-01 17:20 | CP.PCM.PN ---
Subjective - Date & Time of Evaluation Date of Evaluation: 05/01/18 Time of Evaluation: 03:20 - Subjective Subjective: dictated Objective - Vital Signs/Intake and Output Vital Signs (last 24 hours): Temp Pulse Resp BP Pulse Ox 98.3 F 87 20 123/74 94 L 05/01/18 17:09 05/01/18 17:09 05/01/18 17:09 05/01/18 17:09 05/01/18 17:09 Intake and Output: 05/01/18 05/01/18 06:59 18:59 Intake Total 690 300 Balance 690 300 - Medications Medications: Current Medications Acetaminophen (Tylenol 325mg Tab) 650 mg PO Q6 PRN PRN Reason: Fever >100.4 F Albuterol/Ipratropium (Duoneb 3 Mg/0.5 Mg (3 Ml) Ud) 3 ml INH RQ4 [facility] Last Admin: 05/01/18 16:44 Dose: 3 ml Amlodipine Besylate (Norvasc) 10 mg PO DAILY [facility] Last Admin: 05/01/18 13:57 Dose: 10 mg Aspirin (Aspirin Chewable) 81 mg PO DAILY [facility] Last Admin: 05/01/18 09:34 Dose: 81 mg Budesonide (Pulmicort Respules) 0.5 mg INH RQ12 [facility] Ciprofloxacin (Cipro) 500 mg PO BID [facility] PRN Reason: Protocol Last Admin: 05/01/18 09:34 Dose: 500 mg Enoxaparin Sodium (Lovenox) 40 mg SC DAILY [facility] Last Admin: 05/01/18 09:34 Dose: 40 mg Famotidine (Pepcid) 20 mg PO BID [facility] Last Admin: 05/01/18 09:34 Dose: 20 mg Cefepime HCl (Maxipime Iv 2 Gm Premix) 2 gm in 100 mls @ 200 mls/hr IVPB Q8H [facility] PRN Reason: Protocol Stop: 05/03/18 17:31 Last Admin: 05/01/18 08:31 Dose: 200 mls/hr Lactobacillus Acidophilus (Bacid Acidophilus) 1 cap PO BID [facility] Last Admin: 05/01/18 09:34 Dose: 1 cap Methylprednisolone (Solu-Medrol) 40 mg IVP Q8 [facility] Last Admin: 05/01/18 13:30 Dose: 40 mg Multivitamins (Hexavitamin) 1 tab PO DAILY [facility] Last Admin: 05/01/18 09:34 Dose: 1 tab Nystatin (Nystatin Oral Susp) 5 ml PO QID [facility] Ondansetron HCl (Zofran Inj) 4 mg IVP Q6 PRN PRN Reason: Nausea/Vomiting Last Admin: 04/27/18 14:06 Dose: 4 mg Promethazine HCl/Dextromethorphan (Phenergan Dm Syrup) 5 ml PO Q6H PRN PRN Reason: Cough and congestion - Labs Labs: 05/01/18 06:52 05/01/18 06:52 APTT 26 SECONDS (21-34) 04/28/18 07:21
[2018-05-01] MEDS: Nystatin 100,000 Units/ml Oral Susp 5 ml UD PO SCH ×2 (17:26→21:17)
[2018-05-01] MEDS: Budesonide 0.5 mg/2 ml Inhal Susp UD INH SCH (20:36)
--- NOTE | 2018-05-01 22:30 | PN ---
Copied To: Celestine Keenan MD Attending MD: Celestine Keenan MD DATE: 05/01/2018 SUBJECTIVE: The patient is afebrile but she is coughing a lot. She also has thrush in her mouth. Her voice is going away. T-max is 98.3. The nurse told me that they added steroids. PHYSICAL EXAMINATION: VITAL SIGNS: Pulse is 87, blood pressure is 123/74, respirations are 20. HEENT: Head is atraumatic, normocephalic. NECK: Supple. LUNGS: Still sounding with rhonchi, crackle, wheeze. CHEST: Still sounds really terrible. HEART: S1, S2 regular. ABDOMEN: Soft, nontender. No guarding. No rigidity present. EXTREMITIES: Have no edema. LABORATORY DATA: Micro javed, her sputum had Enterobacter before, and she is on both cefepime as well as Cipro, and we are giving 2 gm every 8 hours and she remains on Cipro two times a day. She is also on prednisone, and at this time, I am going to add some nystatin to cover for the thrush that is present . She has multiple myeloma, so I will put her on nystatin at this time, and impression is she has extensive pneumonia with a gram-negative organism. She is immunocompromised with multiple myeloma and now is having laryngitis and has oral thrush. Celestine Keenan MD
[2018-05-02] MEDS: Cefepime IV 2 gm in Dextrose 2 GM/100 ML BAG IVPB SCH ×3 (01:16→17:06)
[2018-05-02] MEDS: Albuterol-Ipratrop 3 mg / 0.5 (3 ml) UD INH SCH ×7 (03:35→23:50)
[2018-05-02] MEDS: MethylPREDNISolone 40 mg Vial IVP SCH ×3 (05:00→22:00)
[2018-05-02 07:39] LABS: MEAN CELL VOLUME 70.3 fL (81.0-99.0); MEAN CORPUSCULAR HEMOGLOBIN 23.6 pg (27.0-31.0); MEAN CORPUSCULAR HGB CONC 33.6 g/dL (33.0-37.0); MEAN PLATELET VOLUME 9.4 fL (7.2-11.7); RBC 4.24 Mil/uL (3.80-5.20); RED CELL DISTRIBUTION WIDTH 15.1 % (11.5-14.5); WHITE BLOOD COUNT 6.7 K/uL (4.8-10.8)
[2018-05-02 07:53] LABS: ALB/GLOB RATIO 1.1 (1.0-2.1); ALBUMIN 3.1 g/dL (3.5-5.0); ALT/SGPT 66 U/L (9-52); AST/SGOT 41 U/L (14-36); BLOOD UREA NITROGEN 13 mg/dL (7-17); CALCIUM 8.9 mg/dl (8.6-10.4); GFR AFRICAN-AMERICAN > 60; GFR NON-AFRICAN AMERICAN > 60
[2018-05-02] MEDS: Budesonide 0.5 mg/2 ml Inhal Susp UD INH SCH ×2 (08:33→20:18)
[2018-05-02] MEDS: Multiple Vitamins Tab PO SCH (09:59)
[2018-05-02] MEDS: Lactobacillus Acidophilus 500 MU Cap PO SCH ×2 (09:59→17:05)
[2018-05-02] MEDS: Enoxaparin 40 mg Syringe SC SCH (10:01)
[2018-05-02] MEDS: Nystatin 100,000 Units/ml Oral Susp 5 ml UD PO SCH ×4 (10:01→22:00)
[2018-05-02 10:43] LABS: LYMPH # 0.8 K/uL (1.0-4.3); MONO # 0.4 K/uL (0.0-0.8); NEUT # 5.5 K/uL (1.8-7.0)
--- NOTE | 2018-05-02 10:45 | CP.PCM.PN ---
Subjective - Date & Time of Evaluation Date of Evaluation: 05/02/18 Time of Evaluation: 09:00 - Subjective Subjective: The patient seen and examined Cough and breathing much improved Afebrile No chest pain Objective - Vital Signs/Intake and Output Vital Signs (last 24 hours): Temp Pulse Resp BP Pulse Ox 98.5 F 80 20 136/60 97 05/02/18 07:47 05/02/18 07:47 05/02/18 07:47 05/02/18 07:47 05/02/18 07:47 Intake and Output: 05/02/18 05/02/18 06:59 18:59 Intake Total 860 340 Balance 860 340 - Medications Medications: Current Medications Acetaminophen (Tylenol 325mg Tab) 650 mg PO Q6 PRN PRN Reason: Fever >100.4 F Albuterol/Ipratropium (Duoneb 3 Mg/0.5 Mg (3 Ml) Ud) 3 ml INH RQ4 [facility] Last Admin: 05/02/18 08:33 Dose: 3 ml Amlodipine Besylate (Norvasc) 10 mg PO DAILY [facility] Last Admin: 05/02/18 10:00 Dose: 10 mg Aspirin (Aspirin Chewable) 81 mg PO DAILY [facility] Last Admin: 05/02/18 09:59 Dose: 81 mg Budesonide (Pulmicort Respules) 0.5 mg INH RQ12 [facility] Last Admin: 05/02/18 08:33 Dose: 0.5 mg Ciprofloxacin (Cipro) 500 mg PO BID [facility] PRN Reason: Protocol Last Admin: 05/02/18 09:59 Dose: 500 mg Enoxaparin Sodium (Lovenox) 40 mg SC DAILY [facility] Last Admin: 05/02/18 10:01 Dose: 40 mg Famotidine (Pepcid) 20 mg PO BID [facility] Last Admin: 05/02/18 10:01 Dose: 20 mg Cefepime HCl (Maxipime Iv 2 Gm Premix) 2 gm in 100 mls @ 200 mls/hr IVPB Q8H [facility] PRN Reason: Protocol Stop: 05/03/18 17:31 Last Admin: 05/02/18 10:09 Dose: 200 mls/hr Lactobacillus Acidophilus (Bacid Acidophilus) 1 cap PO BID [facility] Last Admin: 05/02/18 09:59 Dose: 1 cap Lactulose (Enulose) 20 gm PO BID [facility] Last Admin: 08/03/18 09:59 Dose: 20 gm Methylprednisolone (Solu-Medrol) 40 mg IVP Q8 [facility] Last Admin: 05/02/18 05:00 Dose: 40 mg Multivitamins (Hexavitamin) 1 tab PO DAILY [facility] Last Admin: 05/02/18 09:59 Dose: 1 tab Nystatin (Nystatin Oral Susp) 5 ml PO QID [facility] Last Admin: 05/02/18 10:01 Dose: 5 ml Ondansetron HCl (Zofran Inj) 4 mg IVP Q6 PRN PRN Reason: Nausea/Vomiting Last Admin: 04/27/18 14:06 Dose: 4 mg Promethazine HCl/Dextromethorphan (Phenergan Dm Syrup) 5 ml PO Q6H PRN PRN Reason: Cough and congestion - Labs Labs: 05/02/18 07:30 05/02/18 07:30 APTT 26 SECONDS (21-34) 04/28/18 07:21 - Head Exam Head Exam: ATRAUMATIC, NORMOCEPHALIC - ENT Exam ENT Exam: Mucous Membranes Moist - Neck Exam Neck Exam: Normal Inspection - Respiratory Exam Respiratory Exam: Rhonchi - Cardiovascular Exam Cardiovascular Exam: REGULAR RHYTHM Assessment and Plan (1) Pneumonia Assessment & Plan: continue IV steroids, nebulizer treatment, antibiotics and antitussives Status: Acute (2) Multiple myeloma Status: Acute
--- NOTE | 2018-05-02 13:49 | RAD ---
HISTORY: COMPARISON: 04/30/2018. TECHNIQUE: Chest PA and lateral FINDINGS: LINES AND TUBES: None. LUNG AND PLEURA: The lungs are well inflated. There is interval improved aeration in the right lower lobe with residual airspace disease in the lung base. There is also moderate pulmonary venous congestion and mild interstitial pulmonary edema. There is small right pleural effusion. No pneumothorax. HEART AND MEDIASTINUM: The heart is not enlarged. The hilar and mediastinal contours are within normal limits. SKELETAL STRUCTURES: The bony structures are within normal limits for the patient's age. VISUALIZED UPPER ABDOMEN: Normal. OTHER FINDINGS: None. IMPRESSION: Interval improvement in right lower lobe pneumonia with residual airspace disease in the lung base. Small right pleural effusion.
[2018-05-02] MEDS ORDERED: Iohexol 240 (50 ml) PO ONE (14:00)
--- NOTE | 2018-05-02 17:50 | CP.PCM.PN ---
Subjective - Date & Time of Evaluation Date of Evaluation: 05/02/18 Time of Evaluation: 09:40 - Subjective Subjective: PGY-1 Love Saavedra D.O. Medicine progress note for Dr. Barrett service: Pt seen and examined at bedside. She reports having 2 BMs today. She still has mild SOB which is improving. Pt denies chest pain, nausea, vomiting. Denies fevers and chills. Objective - Vital Signs/Intake and Output Vital Signs (last 24 hours): Temp Pulse Resp BP Pulse Ox 98.0 F 85 20 130/62 97 05/02/18 17:13 05/02/18 17:13 05/02/18 17:13 05/02/18 17:13 05/02/18 17:13 Intake and Output: 05/02/18 05/02/18 06:59 18:59 Intake Total 860 340 Balance 860 340 - Medications Medications: Current Medications Acetaminophen (Tylenol 325mg Tab) 650 mg PO Q6 PRN PRN Reason: Fever >100.4 F Albuterol/Ipratropium (Duoneb 3 Mg/0.5 Mg (3 Ml) Ud) 3 ml INH RQ4 [facility] Last Admin: 05/02/18 15:42 Dose: 3 ml Amlodipine Besylate (Norvasc) 10 mg PO DAILY [facility] Last Admin: 05/02/18 10:00 Dose: 10 mg Aspirin (Aspirin Chewable) 81 mg PO DAILY [facility] Last Admin: 05/02/18 09:59 Dose: 81 mg Budesonide (Pulmicort Respules) 0.5 mg INH RQ12 [facility] Last Admin: 05/02/18 08:33 Dose: 0.5 mg Ciprofloxacin (Cipro) 500 mg PO BID [facility] PRN Reason: Protocol Last Admin: 05/02/18 17:05 Dose: 500 mg Enoxaparin Sodium (Lovenox) 40 mg SC DAILY [facility] Last Admin: 05/02/18 10:01 Dose: 40 mg Famotidine (Pepcid) 20 mg PO BID [facility] Last Admin: 05/02/18 17:05 Dose: 20 mg Cefepime HCl (Maxipime Iv 2 Gm Premix) 2 gm in 100 mls @ 200 mls/hr IVPB Q8H [facility] PRN Reason: Protocol Stop: 05/03/18 17:31 Last Admin: 05/02/18 17:06 Dose: 200 mls/hr Lactobacillus Acidophilus (Bacid Acidophilus) 1 cap PO BID [facility] Last Admin: 05/02/18 17:05 Dose: 1 cap Lactulose (Enulose) 20 gm PO BID [facility] Last Admin: 05/02/18 17:05 Dose: Not Given Methylprednisolone (Solu-Medrol) 40 mg IVP Q8 [facility] Last Admin: 05/02/18 14:05 Dose: 40 mg Multivitamins (Hexavitamin) 1 tab PO DAILY [facility] Last Admin: 05/02/18 09:59 Dose: 1 tab Nystatin (Nystatin Oral Susp) 5 ml PO QID [facility] Last Admin: 05/02/18 17:05 Dose: 5 ml Ondansetron HCl (Zofran Inj) 4 mg IVP Q6 PRN PRN Reason: Nausea/Vomiting Last Admin: 04/27/18 14:06 Dose: 4 mg Promethazine HCl/Dextromethorphan (Phenergan Dm Syrup) 5 ml PO Q6H PRN PRN Reason: Cough and congestion - Labs Labs: 05/02/18 07:30 05/02/18 07:30 APTT 26 SECONDS (21-34) 04/28/18 07:21 - Constitutional Appears: Well, Non-toxic, No Acute Distress - Head Exam Head Exam: ATRAUMATIC, NORMAL INSPECTION, NORMOCEPHALIC - Eye Exam Eye Exam: EOMI, Normal appearance - ENT Exam ENT Exam: Mucous Membranes Moist, Normal Exam - Neck Exam Neck Exam: Normal Inspection - Respiratory Exam Respiratory Exam: Decreased Breath Sounds, Rhonchi (bilateral). absent: Accessory Muscle Use, Respiratory Distress - Cardiovascular Exam Cardiovascular Exam: REGULAR RHYTHM - GI/Abdominal Exam GI & Abdominal Exam: Soft, Normal Bowel Sounds - Rectal Exam Rectal Exam: Deferred - Extremities Exam Extremities Exam: Full ROM, Normal Inspection - Back Exam Back Exam: NORMAL INSPECTION - Neurological Exam Neurological Exam: Alert, Awake, Normal Gait, Oriented x3 - Psychiatric Exam Psychiatric exam: Normal Affect, Normal Mood - Skin Skin Exam: Dry, Intact, Normal Color, Warm Assessment and Plan - Assessment and Plan (Free Text) Assessment: Patient is 77 yo female with PMH of multiple myeloma who presented with SOB and wheezing. She was found to have RLL PNA. Plan: PNA, acute, improving- CAP -sputum cx + Enterobacter Cloacae -cefepime 2g q8 (04/28) -cipro 500mg BID (04/29) -Tylenol 650mg q6 prn -duonebs q4 -Pulmicort 0.5mg q12 -Nystatin 5mL qid -Solu-medrol 40 mg q8 -lasix 20mg x1 -CXR 05/02- RLL PNA, small R pleural effusion -blood Cx negative > 4days -Pulm consult Dr. Medrano -ID consult Dr. Keenan 2. r/o ACS -trops negative x3 -ASA 81mg -echo LVEF 71% 2. Multiple Myeloma -chemo tx w/ Velcade and Revlimid -hold MM tx for now per Dr. Gotti -pt to f/u w/ home onc Dr. Pierre -heme/onc consult Dr. Gotti 3. HTN-stable -Amlodipine 10mg 4. Constipation, resolved 05/02 -lactulose 20mg BID -simethicone -fleet enema x1 5. Chronic anemia -Hgb stable 10 -likely 2/2 MM/chemo tx -continue to monitor 6. Thrombocytopenia -Plts stable 257 -likely 2/2 MM/chemo tx -continue to monitor 7. Hypokalemia, resolved -K 3.9 -40mg K-dur repletion as needed -am CMP 8. Hyponatremia, resolved -Na 138 -pt asymptomatic Ppx: -lovenox 40mg -pepcid 20mg, Lactobacillus Dispo: Pt to be discharged home to family when PNA shows clinical improvement
--- NOTE | 2018-05-02 19:35 | CP.PCM.PN ---
Subjective - Date & Time of Evaluation Date of Evaluation: 05/02/18 Time of Evaluation: 03:00 - Subjective Subjective: dictated Objective - Vital Signs/Intake and Output Vital Signs (last 24 hours): Temp Pulse Resp BP Pulse Ox 98.0 F 85 20 130/62 97 05/02/18 17:13 05/02/18 17:13 05/02/18 17:13 05/02/18 17:13 05/02/18 17:13 Intake and Output: 05/02/18 05/03/18 18:59 06:59 Intake Total 340 Balance 340 - Medications Medications: Current Medications Acetaminophen (Tylenol 325mg Tab) 650 mg PO Q6 PRN PRN Reason: Fever >100.4 F Albuterol/Ipratropium (Duoneb 3 Mg/0.5 Mg (3 Ml) Ud) 3 ml INH RQ4 [facility] Last Admin: 05/02/18 15:42 Dose: 3 ml Amlodipine Besylate (Norvasc) 10 mg PO DAILY [facility] Last Admin: 05/02/18 10:00 Dose: 10 mg Aspirin (Aspirin Chewable) 81 mg PO DAILY [facility] Last Admin: 05/02/18 09:59 Dose: 81 mg Budesonide (Pulmicort Respules) 0.5 mg INH RQ12 [facility] Last Admin: 05/02/18 08:33 Dose: 0.5 mg Ciprofloxacin (Cipro) 500 mg PO BID [facility] PRN Reason: Protocol Last Admin: 05/02/18 17:05 Dose: 500 mg Enoxaparin Sodium (Lovenox) 40 mg SC DAILY [facility] Last Admin: 05/02/18 10:01 Dose: 40 mg Famotidine (Pepcid) 20 mg PO BID [facility] Last Admin: 05/02/18 17:05 Dose: 20 mg Cefepime HCl (Maxipime Iv 2 Gm Premix) 2 gm in 100 mls @ 200 mls/hr IVPB Q8H [facility] PRN Reason: Protocol Stop: 05/03/18 17:31 Last Admin: 05/02/18 17:06 Dose: 200 mls/hr Lactobacillus Acidophilus (Bacid Acidophilus) 1 cap PO BID [facility] Last Admin: 05/02/18 17:05 Dose: 1 cap Lactulose (Enulose) 20 gm PO BID [facility] Last Admin: 05/02/18 17:05 Dose: Not Given Methylprednisolone (Solu-Medrol) 40 mg IVP Q8 [facility] Last Admin: 05/02/18 14:05 Dose: 40 mg Multivitamins (Hexavitamin) 1 tab PO DAILY [facility] Last Admin: 05/02/18 09:59 Dose: 1 tab Nystatin (Nystatin Oral Susp) 5 ml PO QID [facility] Last Admin: 05/02/18 17:05 Dose: 5 ml Ondansetron HCl (Zofran Inj) 4 mg IVP Q6 PRN PRN Reason: Nausea/Vomiting Last Admin: 04/27/18 14:06 Dose: 4 mg Promethazine HCl/Dextromethorphan (Phenergan Dm Syrup) 5 ml PO Q6H PRN PRN Reason: Cough and congestion - Labs Labs: 05/02/18 07:30 05/02/18 07:30 APTT 26 SECONDS (21-34) 04/28/18 07:21
--- NOTE | 2018-05-03 00:35 | PN ---
Copied To: Celestine Keenan MD Attending MD: Celestine Keenan MD DATE: 05/02/2018 SUBJECTIVE: The patient is sitting. She says she feels 50% better. She is still coughing, but breathing has improved. She also had a bowel movement today, so she feels a lot better. PHYSICAL EXAMINATION: VITAL SIGNS: T-max is 98, pulse 85, blood pressure is 130/62, respirations are 20, saturation 97%. HEENT: Head is atraumatic, normocephalic. Pupils are reacting to light. NECK: Supple. LUNGS: Have bilateral rhonchi and occasional crackles. HEART: S1, S2 are regular. ABDOMEN: Soft, nontender. No guarding, no rigidity present. EXTREMITIES: Have no edema. LABORATORY DATA: Her white count is 6.7, hemoglobin 10, hematocrit 29.8, platelet count is 379. BUN is 13, creatinine 0.9. ASSESSMENT AND PLAN: She had Gram-negative pneumonia with sputum having Enterobacter, and she is on treatment since 04/29/2018, today is the fifth day, so hoping by Saturday if she improves, we could send her on Cipro p.o., but we will see what the lace weaver thinks about it. Her lungs are junky and she still has multiple myeloma and very poor quality of lungs, probably has chronic lung disease. Celestine Keenan MD
[2018-05-03] MEDS: Cefepime IV 2 gm in Dextrose 2 GM/100 ML BAG IVPB SCH ×3 (00:45→17:17)
[2018-05-03] MEDS: Albuterol-Ipratrop 3 mg / 0.5 (3 ml) UD INH SCH ×5 (03:27→19:39)
[2018-05-03] MEDS: MethylPREDNISolone 40 mg Vial IVP SCH ×2 (05:40→13:22)
[2018-05-03 07:04] LABS: RED CELL DISTRIBUTION WIDTH 15.1 % (11.5-14.5); WHITE BLOOD COUNT 11.5 K/uL (4.8-10.8)
[2018-05-03 07:22] LABS: HEMOGLOBIN 9.9 g/dL (11.0-16.0); MEAN CELL VOLUME 70.4 fL (81.0-99.0); MEAN CORPUSCULAR HGB CONC 32.7 g/dL (33.0-37.0); MEAN PLATELET VOLUME 9.1 fL (7.2-11.7); RBC 4.32 Mil/uL (3.80-5.20)
[2018-05-03 07:30] LABS: ALB/GLOB RATIO 1.2 (1.0-2.1); ALBUMIN 3.2 g/dL (3.5-5.0); ALT/SGPT 76 U/L (9-52); AST/SGOT 53 U/L (14-36); BLOOD UREA NITROGEN 21 mg/dL (7-17); CALCIUM 8.9 mg/dl (8.6-10.4); GFR AFRICAN-AMERICAN > 60; GFR NON-AFRICAN AMERICAN 54
[2018-05-03] MEDS: Budesonide 0.5 mg/2 ml Inhal Susp UD INH SCH ×2 (07:59→19:39)
[2018-05-03] MEDS: Nystatin 100,000 Units/ml Oral Susp 5 ml UD PO SCH ×4 (09:11→21:37)
[2018-05-03] MEDS: Multiple Vitamins Tab PO SCH (09:12)
[2018-05-03] MEDS: Lactobacillus Acidophilus 500 MU Cap PO SCH ×2 (09:12→17:16)
[2018-05-03] MEDS: Enoxaparin 40 mg Syringe SC SCH (09:13)
[2018-05-03 09:18] LABS: BASO % 0.4 % (0.0-2.0); EOS % 0.1 % (0.0-4.0); LYMPH % 20.7 % (20.0-40.0); NEUT % 69.8 % (50.0-75.0)
[2018-05-03 09:19] LABS: LYMPH # 2.4 K/uL (1.0-4.3)
--- NOTE | 2018-05-03 14:22 | CP.PCM.PN ---
Subjective - Date & Time of Evaluation Date of Evaluation: 05/03/18 Time of Evaluation: 11:40 Objective - Vital Signs/Intake and Output Vital Signs (last 24 hours): Temp Pulse Resp BP Pulse Ox 98.6 F 84 20 135/71 97 05/03/18 07:59 05/03/18 07:59 05/03/18 07:59 05/03/18 07:59 05/03/18 07:59 Intake and Output: 05/03/18 05/03/18 06:59 18:59 Intake Total 765 Balance 765 - Medications Medications: Current Medications Acetaminophen (Tylenol 325mg Tab) 650 mg PO Q6 PRN PRN Reason: Fever >100.4 F Albuterol/Ipratropium (Duoneb 3 Mg/0.5 Mg (3 Ml) Ud) 3 ml INH RQ4 [facility] Last Admin: 05/03/18 12:51 Dose: 3 ml Amlodipine Besylate (Norvasc) 10 mg PO DAILY [facility] Last Admin: 05/03/18 09:12 Dose: 10 mg Aspirin (Aspirin Chewable) 81 mg PO DAILY [facility] Last Admin: 05/03/18 09:12 Dose: 81 mg Budesonide (Pulmicort Respules) 0.5 mg INH RQ12 [facility] Last Admin: 05/03/18 07:59 Dose: 0.5 mg Ciprofloxacin (Cipro) 500 mg PO BID [facility] PRN Reason: Protocol Last Admin: 05/03/18 09:12 Dose: 500 mg Enoxaparin Sodium (Lovenox) 40 mg SC DAILY [facility] Last Admin: 05/03/18 09:13 Dose: 40 mg Famotidine (Pepcid) 20 mg PO BID [facility] Last Admin: 05/03/18 09:12 Dose: 20 mg Cefepime HCl (Maxipime Iv 2 Gm Premix) 2 gm in 100 mls @ 200 mls/hr IVPB Q8H [facility] PRN Reason: Protocol Stop: 05/03/18 17:31 Last Admin: 05/03/18 09:13 Dose: 200 mls/hr Lactobacillus Acidophilus (Bacid Acidophilus) 1 cap PO BID [facility] Last Admin: 05/03/18 09:12 Dose: 1 cap Lactulose (Enulose) 20 gm PO BID [facility] Last Admin: 05/03/18 09:12 Dose: Not Given Methylprednisolone (Solu-Medrol) 40 mg IVP Q12H [facility] Last Admin: 05/03/18 13:22 Dose: 40 mg Multivitamins (Hexavitamin) 1 tab PO DAILY [facility] Last Admin: 05/03/18 09:12 Dose: 1 tab Nystatin (Nystatin Oral Susp) 5 ml PO QID [facility] Last Admin: 05/03/18 13:21 Dose: 5 ml Ondansetron HCl (Zofran Inj) 4 mg IVP Q6 PRN PRN Reason: Nausea/Vomiting Last Admin: 04/27/18 14:06 Dose: 4 mg Promethazine HCl/Dextromethorphan (Phenergan Dm Syrup) 5 ml PO Q6H PRN PRN Reason: Cough and congestion - Labs Labs: 05/03/18 06:52 05/03/18 06:52 APTT 26 SECONDS (21-34) 04/28/18 07:21
--- NOTE | 2018-05-03 14:59 | CP.PCM.PN ---
Subjective - Date & Time of Evaluation Date of Evaluation: 05/03/18 Time of Evaluation: 14:10 - Subjective Subjective: The patient seen and examined Breathing and cough much better Afebrile No chest pain Switch to prednisone nebulizer treatment P.o. antibiotics Objective - Vital Signs/Intake and Output Vital Signs (last 24 hours): Temp Pulse Resp BP Pulse Ox 98.6 F 84 20 135/71 97 05/03/18 07:59 05/03/18 07:59 05/03/18 07:59 05/03/18 07:59 05/03/18 07:59 Intake and Output: 05/03/18 05/03/18 06:59 18:59 Intake Total 765 Balance 765 - Medications Medications: Current Medications Acetaminophen (Tylenol 325mg Tab) 650 mg PO Q6 PRN PRN Reason: Fever >100.4 F Albuterol/Ipratropium (Duoneb 3 Mg/0.5 Mg (3 Ml) Ud) 3 ml INH RQ4 [facility] Last Admin: 05/03/18 12:51 Dose: 3 ml Amlodipine Besylate (Norvasc) 10 mg PO DAILY [facility] Last Admin: 05/03/18 09:12 Dose: 10 mg Aspirin (Aspirin Chewable) 81 mg PO DAILY [facility] Last Admin: 05/03/18 09:12 Dose: 81 mg Budesonide (Pulmicort Respules) 0.5 mg INH RQ12 [facility] Last Admin: 05/03/18 07:59 Dose: 0.5 mg Ciprofloxacin (Cipro) 500 mg PO BID [facility] PRN Reason: Protocol Last Admin: 05/03/18 09:12 Dose: 500 mg Enoxaparin Sodium (Lovenox) 40 mg SC DAILY [facility] Last Admin: 05/03/18 09:13 Dose: 40 mg Famotidine (Pepcid) 20 mg PO BID [facility] Last Admin: 05/03/18 09:12 Dose: 20 mg Cefepime HCl (Maxipime Iv 2 Gm Premix) 2 gm in 100 mls @ 200 mls/hr IVPB Q8H [facility] PRN Reason: Protocol Stop: 05/03/18 17:31 Last Admin: 05/03/18 09:13 Dose: 200 mls/hr Lactobacillus Acidophilus (Bacid Acidophilus) 1 cap PO BID [facility] Last Admin: 05/03/18 09:12 Dose: 1 cap Lactulose (Enulose) 20 gm PO BID [facility] Last Admin: 05/03/18 09:12 Dose: Not Given Methylprednisolone (Solu-Medrol) 40 mg IVP Q12H [facility] Last Admin: 05/03/18 13:22 Dose: 40 mg Multivitamins (Hexavitamin) 1 tab PO DAILY [facility] Last Admin: 05/03/18 09:12 Dose: 1 tab Nystatin (Nystatin Oral Susp) 5 ml PO QID [facility] Last Admin: 05/03/18 13:21 Dose: 5 ml Ondansetron HCl (Zofran Inj) 4 mg IVP Q6 PRN PRN Reason: Nausea/Vomiting Last Admin: 04/27/18 14:06 Dose: 4 mg Promethazine HCl/Dextromethorphan (Phenergan Dm Syrup) 5 ml PO Q6H PRN PRN Reason: Cough and congestion - Labs Labs: 05/03/18 06:52 05/03/18 06:52 APTT 26 SECONDS (21-34) 04/28/18 07:21 Assessment and Plan (1) Pneumonia Status: Acute (2) Multiple myeloma Status: Acute
--- NOTE | 2018-05-03 16:14 | CP.PCM.PN ---
<Alethea Collier - Last Filed: 05/03/18 16:11> Subjective - Date & Time of Evaluation Date of Evaluation: 05/03/18 Time of Evaluation: 07:00 - Subjective Subjective: PGY2- Progress Note for Dr. Pierre Patient seen and examined at bedside. Patient is eating soup and says she is feeling better. Patient says her breathing is better. Patient denies any chest pain. Patient admits to mild abdominal pain and decreased appetite. Patient denies nausea, vomiting, constipation, or diarrhea. Objective - Vital Signs/Intake and Output Vital Signs (last 24 hours): Temp Pulse Resp BP Pulse Ox 98.6 F 84 20 135/71 97 05/03/18 07:59 05/03/18 07:59 05/03/18 07:59 05/03/18 07:59 05/03/18 07:59 Intake and Output: 05/03/18 05/03/18 06:59 18:59 Intake Total 765 Balance 765 - Medications Medications: Current Medications Acetaminophen (Tylenol 325mg Tab) 650 mg PO Q6 PRN PRN Reason: Fever >100.4 F Albuterol/Ipratropium (Duoneb 3 Mg/0.5 Mg (3 Ml) Ud) 3 ml INH RQ4 MELANI Last Admin: 05/03/18 12:51 Dose: 3 ml Amlodipine Besylate (Norvasc) 10 mg PO DAILY [facility] Last Admin: 05/03/18 09:12 Dose: 10 mg Aspirin (Aspirin Chewable) 81 mg PO DAILY [facility] Last Admin: 05/03/18 09:12 Dose: 81 mg Budesonide (Pulmicort Respules) 0.5 mg INH RQ12 MELANI Last Admin: 05/03/18 07:59 Dose: 0.5 mg Ciprofloxacin (Cipro) 500 mg PO BID MELANI PRN Reason: Protocol Last Admin: 05/03/18 09:12 Dose: 500 mg Enoxaparin Sodium (Lovenox) 40 mg SC DAILY [facility] Last Admin: 05/03/18 09:13 Dose: 40 mg Famotidine (Pepcid) 20 mg PO BID [facility] Last Admin: 05/03/18 09:12 Dose: 20 mg Cefepime HCl (Maxipime Iv 2 Gm Premix) 2 gm in 100 mls @ 200 mls/hr IVPB Q8H MELANI PRN Reason: Protocol Stop: 05/03/18 17:31 Last Admin: 05/03/18 09:13 Dose: 200 mls/hr Lactobacillus Acidophilus (Bacid Acidophilus) 1 cap PO BID [facility] Last Admin: 05/03/18 09:12 Dose: 1 cap Lactulose (Enulose) 20 gm PO BID [facility] Last Admin: 05/03/18 09:12 Dose: Not Given Methylprednisolone (Solu-Medrol) 40 mg IVP Q12H [facility] Last Admin: 05/03/18 13:22 Dose: 40 mg Multivitamins (Hexavitamin) 1 tab PO DAILY [facility] Last Admin: 05/03/18 09:12 Dose: 1 tab Nystatin (Nystatin Oral Susp) 5 ml PO QID [facility] Last Admin: 05/03/18 13:21 Dose: 5 ml Ondansetron HCl (Zofran Inj) 4 mg IVP Q6 PRN PRN Reason: Nausea/Vomiting Last Admin: 04/27/18 14:06 Dose: 4 mg Promethazine HCl/Dextromethorphan (Phenergan Dm Syrup) 5 ml PO Q6H PRN PRN Reason: Cough and congestion - Labs Labs: 05/03/18 06:52 05/03/18 06:52 APTT 26 SECONDS (21-34) 04/28/18 07:21 - Additional Findings Additional findings: - Constitutional Appears: Well, Non-toxic, No Acute Distress - Head Exam Head Exam: ATRAUMATIC, NORMAL INSPECTION, NORMOCEPHALIC - Eye Exam Eye Exam: EOMI, Normal appearance - ENT Exam ENT Exam: Mucous Membranes Moist, Normal Exam - Neck Exam Neck Exam: Normal Inspection - Respiratory Exam Respiratory Exam: Decreased Breath Sounds, Rhonchi (bilateral). absent: Accessory Muscle Use, Respiratory Distress - Cardiovascular Exam Cardiovascular Exam: REGULAR RHYTHM - GI/Abdominal Exam GI & Abdominal Exam: Soft, Normal Bowel Sounds - Rectal Exam Rectal Exam: Deferred - Extremities Exam Extremities Exam: Full ROM, Normal Inspection - Back Exam Back Exam: NORMAL INSPECTION - Neurological Exam Neurological Exam: Alert, Awake, Normal Gait, Oriented x3 - Psychiatric Exam Psychiatric exam: Normal Affect, Normal Mood - Skin Skin Exam: Dry, Intact, Normal Color, Warm Assessment and Plan - Assessment and Plan (Free Text) Assessment: Community Acquired Pneumonia sputum cx + Enterobacter Cloacae CXR 05/02- RLL PNA, small R pleural effusion blood Cx negative > 4days -Pulm consult Dr. Medrano -ID consult Dr. Keenan Meds: -cefepime 2g q8 (04/28) -cipro 500mg BID (04/29) -Tylenol 650mg q6 prn -duonebs q4 -Pulmicort 0.5mg q12 -Nystatin 5mL qid -Solu-medrol 40 mg q8 -lasix 20mg x1 Chest Pain, Resolved trops negative x3 echo LVEF 71% ASA 81mg Multiple Myeloma chemo tx w/ Velcade and Revlimid hold MM tx for now per Dr. Gotti heme/onc consult Dr. Gotti, nick quintanilla -pt to f/u w/ home onc Dr. Pierre heme/onc consult Dr. Gotti HTN stable Amlodipine 10mg Constipation, resolved 05/02 lactulose 20mg BID simethicone fleet enema x1 Chronic Anemia Hgb stable 10 likely 2/2 MM/chemo tx continue to monitor Thrombocytopenia Plts stable 257 ikely 2/2 MM/chemo tx continue to monitor Prophylaxis lovenox 40mg pepcid 20mg Lactobacillus <Zeeshan Pierre - Last Filed: 05/03/18 21:49> Objective - Vital Signs/Intake and Output Vital Signs (last 24 hours): Temp Pulse Resp BP Pulse Ox 98.9 F 86 20 124/69 99 05/03/18 16:00 05/03/18 16:00 05/03/18 16:00 05/03/18 16:00 05/03/18 16:00 - Medications Medications: Current Medications Acetaminophen (Tylenol 325mg Tab) 650 mg PO Q6 PRN PRN Reason: Fever >100.4 F Albuterol/Ipratropium (Duoneb 3 Mg/0.5 Mg (3 Ml) Ud) 3 ml INH RQ4 MELANI Last Admin: 05/03/18 19:39 Dose: 3 ml Amlodipine Besylate (Norvasc) 10 mg PO DAILY [facility] Last Admin: 05/03/18 09:12 Dose: 10 mg Aspirin (Aspirin Chewable) 81 mg PO DAILY [facility] Last Admin: 05/03/18 09:12 Dose: 81 mg Budesonide (Pulmicort Respules) 0.5 mg INH RQ12 MELANI Last Admin: 05/03/18 19:39 Dose: 0.5 mg Ciprofloxacin (Cipro) 500 mg PO BID [facility] PRN Reason: Protocol Last Admin: 05/03/18 17:17 Dose: 500 mg Enoxaparin Sodium (Lovenox) 40 mg SC DAILY [facility] Last Admin: 05/03/18 09:13 Dose: 40 mg Famotidine (Pepcid) 20 mg PO BID [facility] Last Admin: 05/03/18 17:17 Dose: 20 mg Lactobacillus Acidophilus (Bacid Acidophilus) 1 cap PO BID [facility] Last Admin: 05/03/18 17:16 Dose: 1 cap Lactulose (Enulose) 20 gm PO BID [facility] Last Admin: 05/03/18 17:18 Dose: Not Given Methylprednisolone (Solu-Medrol) 40 mg IVP Q12H [facility] Last Admin: 05/03/18 13:22 Dose: 40 mg Multivitamins (Hexavitamin) 1 tab PO DAILY [facility] Last Admin: 05/03/18 09:12 Dose: 1 tab Nystatin (Nystatin Oral Susp) 5 ml PO QID [facility] Last Admin: 05/03/18 21:37 Dose: 5 ml Ondansetron HCl (Zofran Inj) 4 mg IVP Q6 PRN PRN Reason: Nausea/Vomiting Last Admin: 04/27/18 14:06 Dose: 4 mg Promethazine HCl/Dextromethorphan (Phenergan Dm Syrup) 5 ml PO Q6H PRN PRN Reason: Cough and congestion - Labs Labs: 05/03/18 06:52 05/03/18 06:52 APTT 26 SECONDS (21-34) 04/28/18 07:21 Attending/Attestation - Attestation I have personally seen and examined this patient.: Yes I have fully participated in the care of the patient.: Yes I have reviewed all pertinent clinical information, including history, physical exam and plan: Yes Notes (Text): 05/03/18 21:38 Patient was seen and examined at 11:30 AM 05/03/18 361 A. Also on ROS: Moved her bowels 3x on 05/02/18: first was hard then the last two were smooth nonbloody NO cough NO SOB/Wheezing NO abdominal pain NO N/V NO chest pain/palpitations NO other complaints upon FULL ROS Also on Exam: Respiratory: Bilateral mid to lower lung field inspiratory crackles Plan: Patient is clinically better and would like to go home. Solumedrol was decreased to 40 mg IV Q12H and patient will need to be switched to PO steroid taper when ready for discharge: Prednisone [id number] Patient will need to remain on Pulmicort INH and Albuterol PRN upon discharge and will need to follow up with Pulmonology Dr. Medrano for PFTs Patient will need to be on either Nystatin (which she is on right now) or switched over to Diflucan for Oral Thrush to complete a total of 14 days Speak with ID Dr. Ha on Saturday05/04/18 to see if patient is cleared from her standpoint (she wanted patient to stay till Saturday05/05/18 however patient is stable) on Ciprofloxacin 500 mg PO 2x/day for total of 10 days from start of antibiotics. Zeeshan Pierre D.O.
--- NOTE | 2018-05-03 20:07 | PN ---
Copied To: Celestine Keenan MD Attending MD: Celestine Keenan MD DATE: 05/03/2018 SUBJECTIVE: The patient was seen today, and she says she had three BMs. She is breathing easier. She says the doctor told her that she may go home on Saturday, and she is looking forward to it. PHYSICAL EXAMINATION: VITAL SIGNS: T-max is 98.6, pulse 84, blood pressure is 135/71, respirations are 20. GENERAL: She is trying to eat, but her appetite is still very poor. HEENT: Tongue is moist. NECK: Supple. LUNGS: Have occasional coarse breath sounds and rhonchi bilaterally. No wheezing heard. HEART: S1 and S2 regular. ABDOMEN: Soft, nontender. No guarding, no rigidity present. Her white count increased to 11.5, hemoglobin 9.9, hematocrit 30.4, platelet count is 504,000. It is going up. BUN is 13, creatinine 1, but the patient was started on steroids, and she is on double coverage, so at this time, I will leave both of them on for now, and if she improves, we will send her home on [facility] on Saturday. I also wanted to see a chest x-ray done. Chest x-ray was done yesterday which shows interval improvement in right lower lobe pneumonia with residual airspace disease in the lungs, small right pleural effusion. It is improving and the patient was constipated before and may have had bowel movements since. She does have gram-negative pneumonia and has multiple myeloma, so it is better to cover it with two antibiotics at this time. We will follow. Celestine Keenan MD
[2018-05-04] MEDS: MethylPREDNISolone 40 mg Vial IVP SCH (01:00)
[2018-05-04] MEDS: Cefepime 2 GM in Dextrose 5% In Water 100 ML IVPB SCH ×2 (01:00→09:20)
[2018-05-04] MEDS: Albuterol-Ipratrop 3 mg / 0.5 (3 ml) UD INH SCH ×4 (01:44→12:57)
[2018-05-04] MEDS: Budesonide 0.5 mg/2 ml Inhal Susp UD INH SCH (07:38)
[2018-05-04 07:41] VITALS: BP 143/67; PULSE 76; TEMP 98.2; O2SAT 96
[2018-05-04 08:16] LABS: HEMOGLOBIN 10.2 g/dL (11.0-16.0); MEAN CELL VOLUME 70.6 fL (81.0-99.0)
[2018-05-04 08:22] LABS: MEAN CORPUSCULAR HEMOGLOBIN 23.5 pg (27.0-31.0); MEAN CORPUSCULAR HGB CONC 33.2 g/dL (33.0-37.0); MEAN PLATELET VOLUME 8.7 fL (7.2-11.7); RBC 4.36 Mil/uL (3.80-5.20); RED CELL DISTRIBUTION WIDTH 15.3 % (11.5-14.5); WHITE BLOOD COUNT 9.5 K/uL (4.8-10.8)
[2018-05-04 08:47] LABS: ALB/GLOB RATIO 1.4 (1.0-2.1); ALBUMIN 3.3 g/dL (3.5-5.0); ALT/SGPT 83 U/L (9-52); AST/SGOT 54 U/L (14-36); BLOOD UREA NITROGEN 23 mg/dL (7-17); CALCIUM 8.8 mg/dl (8.6-10.4); GFR AFRICAN-AMERICAN > 60; GFR NON-AFRICAN AMERICAN 54
[2018-05-04 09:06] LABS: MONO # 0.4 K/uL (0.0-0.8); NEUT # 8.4 K/uL (1.8-7.0)
[2018-05-04] MEDS: Multiple Vitamins Tab PO SCH (09:19)
[2018-05-04] MEDS: Enoxaparin 40 mg Syringe SC SCH (09:19)
[2018-05-04] MEDS: Lactobacillus Acidophilus 500 MU Cap PO SCH (09:19)
[2018-05-04] MEDS: Nystatin 100,000 Units/ml Oral Susp 5 ml UD PO SCH (09:19)
--- NOTE | 2018-05-04 10:18 | CP.PCM.DIS ---
Provider - Provider Date of Admission: 04/27/18 10:59 Attending physician: Guillermo Hensley MD Primary care physician: Dr Edmond Nicholas Consults: Dr Medrano ~ Pulmonology Dr Gotti ~ Hematology Oncology Time Spent in preparation of Discharge (in minutes): 29 Hospital Course - Lab Results Lab Results: Micro Results 04/27/18 11:55 Blood Blood Culture - Final NO GROWTH AFTER 5 DAYS 04/27/18 11:55 Blood Gram Stain - Final TEST NOT PERFORMED 04/27/18 11:55 Blood Blood Culture - Final NO GROWTH AFTER 5 DAYS 04/27/18 11:55 Blood Gram Stain - Final TEST NOT PERFORMED 04/27/18 19:28 Urine,Random Urine Culture - Final No Growth (<1,000 CFU/ML) 04/27/18 19:28 Sputum Gram Stain - Final 04/27/18 19:28 Sputum Sputum Culture - Final Enterobacter Cloacae Ssp Cloac 04/27/18 19:28 Throat Group A Strep Throat Culture - Final NO BETA STREP GROUP A ISOLATED. Most Recent Lab Values WBC 9.5 K/uL (4.8-10.8) 05/04/18 08:01 RBC 4.36 Mil/uL (3.80-5.20) 05/04/18 08:01 Hgb 10.2 g/dL (11.0-16.0) L 05/04/18 08:01 Hct 30.8 % (34.0-47.0) L 05/04/18 08:01 MCV 70.6 fL (81.0-99.0) L 05/04/18 08:01 MCH 23.5 pg (27.0-31.0) L 05/04/18 08:01 MCHC 33.2 g/dL (33.0-37.0) 05/04/18 08:01 RDW 15.3 % (11.5-14.5) H 05/04/18 08:01 Plt Count 592 K/uL (130-400) H 05/04/18 08:01 MPV 8.7 fL (7.2-11.7) 05/04/18 08:01 Neut % (Auto) 86.0 % (50.0-75.0) H 05/04/18 08:01 Lymph % (Auto) 10.0 % (20.0-40.0) L 05/04/18 08:01 [place] % (Auto) 4.0 % (0.0-10.0) 05/04/18 08:01 Eos % (Auto) 0.0 % (0.0-4.0) 05/04/18 08:01 Baso % (Auto) 0.0 % (0.0-2.0) 05/04/18 08:01 Neut # (Auto) 8.4 K/uL (1.8-7.0) H 05/04/18 08:01 Lymph # (Auto) 1.0 K/uL (1.0-4.3) 05/04/18 08:01 [place] # (Auto) 0.4 K/uL (0.0-0.8) 05/04/18 08:01 Eos # (Auto) 0.0 K/uL (0.0-0.7) 05/04/18 08:01 Baso # (Auto) 0.0 K/uL (0.0-0.2) 05/04/18 08:01 Neutrophils % (Manual) 66 % (50-75) 04/30/18 08:40 Band Neutrophils % 1 % (0-2) 04/29/18 07:08 Lymphocytes % (Manual) 9 % (20-40) L 04/30/18 08:40 Monocytes % (Manual) 23 % (0-10) H 04/30/18 08:40 Eosinophils % (Manual) 2 % (0-4) 04/30/18 08:40 Nucleated RBC % 1 % (0-0) H 04/29/18 07:08 Platelet Estimate Normal (NORMAL) 04/30/18 08:40 Polychromasia Slight 04/27/18 09:50 Hypochromasia (manual) Slight 04/30/18 08:40 Poikilocytosis (manual Slight 04/30/18 08:40 Basophilic Stippling Slight 04/30/18 08:40 Anisocytosis (manual) Slight 04/30/18 08:40 Microcytosis (manual) Slight 04/27/18 09:50 Macrocytosis (manual) Slight 04/29/18 07:08 Target Cells Slight 04/30/18 08:40 Tear Drop Cells Slight 04/30/18 08:40 Ovalocytes Slight 04/29/18 07:08 ESR 20 mm/hr (0-20) 04/27/18 09:50 Retic Count 1.4 % (0.5-1.5) 04/28/18 07:21 Hemoglobin A 96.7 Percent (>96.0) 04/28/18 07:21 Hemoglobin A2 2.3 Percent (1.8-3.5) 04/28/18 07:21 Hemoglobin C 0.0 Percent (0.0-0.0) 04/28/18 07:21 Hemoglobin F () <1.0 Percent (<2.0) 04/28/18 07: Hemoglobin S 0.0 Percent (0.0-0.0) 04/28/18 07: Variant Hemoglobin 0.0 Percent (0.0-0.0) 04/28/18 07:21 Hemoglobinopathy Red Blood Count 4.41 Mill/mcL (3.80-5.10) 04/28/18 07:21 Hemoglobinopathy Hct 31.5 % (35.0-45.0) L 04/28/18 07:21 Hemoglobinopathy Hgb 10.2 g/dL (11.7-15.5) L 04/28/18 07:21 Hemoglobinopathy MCV 71.5 fL (80.0-100.0) L 04/28/18 07:21 Hemoglobinopathy MCH 23.1 pg (27.0-33.0) L 04/28/18 07:21 Hemoglobinopathy RDW 16.0 % (11.0-15.0) H 04/28/18 07:21 Hemoglobinopathy Interp See note 04/28/18 07:21 APTT 26 SECONDS (21-34) 04/28/18 07:21 Sodium 135 mmol/L (132-148) 05/04/18 08:01 Potassium 4.5 mmol/L (3.6-5.2) 05/04/18 08:01 Chloride 102 mmol/L (98-107) 05/04/18 08:01 Carbon Dioxide 24 mmol/L (22-30) 05/04/18 08:01 Anion Gap 14 (10-20) 05/04/18 08:01 BUN 23 mg/dL (7-17) H 05/04/18 08:01 Creatinine 1.0 mg/dL (0.7-1.2) 05/04/18 08:01 Est GFR ( Amer) > 60 05/04/18 08:01 Est GFR (Non-Af Amer) 54 05/04/18 08:01 Random Glucose 112 mg/dL (65-105) H 05/04/18 08:01 Calcium 8.8 mg/dl (8.6-10.4) 05/04/18 08:01 Phosphorus 3.8 mg/dL (2.5-4.5) 05/04/18 08:01 Magnesium 2.2 mg/dL (1.6-2.3) 05/04/18 08:01 Ferritin 731.0 ng/mL 04/28/18 07:21 Total Bilirubin 0.5 mg/dL (0.2-1.3) 05/04/18 08:01 AST 54 U/L (14-36) H 05/04/18 08:01 ALT 83 U/L (9-52) H 05/04/18 08:01 Alkaline Phosphatase 77 U/L (38-126) 05/04/18 08:01 Total Creatine Kinase 212 U/L (30-135) H 04/28/18 07:21 CK-MB (Mass) 2.45 ng/mL (0.0-3.38) 04/28/18 07:21 Troponin I 0.0200 ng/mL (0.00-0.120) 04/28/18 07:21 NT-Pro-B Natriuret Pep 2830 pg/mL (0-900) H 04/27/18 09:50 Total Protein 5.7 g/dL (6.3-8.3) L 05/04/18 08:01 Albumin 3.3 g/dL (3.5-5.0) L 05/04/18 08:01 Globulin 2.4 gm/dL (2.2-3.9) 05/04/18 08:01 Albumin/Globulin Ratio 1.4 (1.0-2.1) 05/04/18 08:01 Vitamin B12 955 pg/mL (239-931) H 04/28/18 07:21 Folate 14.4 ng/mL 04/28/18 07:21 Procalcitonin 0.38 NG/ML (0.19-0.49) 04/30/18 08:40 Vancomycin Trough 12.7 ug/mL (5.0-10.0) H 04/29/18 14:22 Influenza Typ A,B (EIA) Negative for flu a/b (NEGATIVE) 04/27/18 19:28 Ur L.pneumophila Ag Negative (NEGATIVE) 04/27/18 19:28 Grp A Beta Strep Ag Negative (NEGATIVE) 04/27/18 19:28 - Hospital Course Hospital Course: This is a very nice 77 year old female with a history of multiple myeloma and HTN. She came to [facility] on 04/27 due to shortness of breath and wheezing. She also reported coughing and productive sputum production as well. She had recently started chemotherapy on March 24, 2018. When admitted, she did not have a WBC, however there was large bandemia noted - . She was started on IV abx Cefepime as well as IV Vancomycin The blood cultures from 04/27 were negative, she did have + sputum culture done on 04/27 for Enterobacter which was sensitive to the IV Cefepime she was reciving. A CT of the chest PE protocol was done on 04/27 since we had suspected that since she had a maligancy she maybe at risk for a PE and this was negative for PE. the imaging did suggest she may also have a PNA however evaluation with pulmonology felt that the lesions present on lungs maybe more due to MM then a PNA, nevertheless she was continued on IV abx. She continued to improve while here. She had an echo done as well and reported EF of 60 to 65%. She was also started on IV soluedmrol and this was decreased to PO during the interval that she was here as well. From the resident HPI "Patient is a 77 year old female with past medical history of Multiple myeloma and HTN that came to ED today due to worsening of shortness of breath and wheezing that started on with mild symptoms that she believed were similar to having a common cold. Patient noticed her symptoms worsening last night. Patient has been coughing yellowish sputum but reports no blood in the sputum. Patient admits to feeling weak and decrease in appetite, as well as having constipation for 2 days. Patient says she started her chemotherapy on March 24, 2018. Patient follows Dr Guillermo Pierre for her MM diagonis. Patient admits to feeling chills, having difficulty breathing and nausea. Patient denies fever, chest pain, headache, dizziness, vision changes, palpitation, abdominal pain, vomiting, diarrhea or dysuria. " Discharge Exam - Head Exam Head Exam: ATRAUMATIC, NORMAL INSPECTION, NORMOCEPHALIC - Eye Exam Eye Exam: EOMI, Normal appearance Pupil Exam: NORMAL ACCOMODATION - ENT Exam ENT Exam: Mucous Membranes Moist - Neck Exam Neck exam: Full Rom - Respiratory Exam Respiratory Exam: Clear to PA & Lateral, NORMAL BREATHING PATTERN, UNREMARKABLE - Cardiovascular Exam Cardiovascular Exam: REGULAR RHYTHM - GI/Abdominal Exam GI & Abdominal Exam: Normal Bowel Sounds, Unremarkable - Neurological Exam Neurological exam: Alert, Oriented x3 - Psychiatric Exam Psychiatric exam: Normal Affect, Normal Mood - Skin Skin Exam: Normal Color, Warm Discharge Plan - Discharge Medications Prescriptions: Ciprofloxacin [Cipro] 500 mg PO BID #20 tab Fluconazole [Diflucan] 100 mg PO DAILY #3 tab Prednisone [Deltasone] 20 mg PO DAILY #4 tablet - Follow Up Plan Condition: STABLE Disposition: HOME/ ROUTINE Instructions: Pneumonia in Adults
== END 2018-05-04 13:00 | disposition home or self-care (01) | DRG 178 ==
LOC: C.ER 09:11 → C.9E 10:59 → C.3T 12:08
PROVIDERS: ADMIT Internal Medicine; ATTEND Internal Medicine
DX: J15.6 Pneumonia due to other Gram-negative bacteria (principal); J90 Pleural effusion, not elsewhere classified; C90.00 Multiple myeloma not having achieved remission; B37.0 Candidal stomatitis; E87.1 Hypo-osmolality and hyponatremia; E87.6 Hypokalemia; D72.825 Bandemia; I10 Essential (primary) hypertension; D63.0 Anemia in neoplastic disease; D69.59 Other secondary thrombocytopenia; K59.00 Constipation, unspecified; Z79.82 Long term (current) use of aspirin; Z87.440 Personal history of urinary (tract) infections; Z90.710 Acquired absence of both cervix and uterus; Z98.82 Breast implant status

== ENCOUNTER 2018-11-08 12:38 | Emergency (ER) | payer MEDICARE, MEDICAID ==
[2018-11-08 12:58] VITALS: RESP 18; TEMP 98.9
[2018-11-08 13:43] LABS: EOS # 0.2 K/uL (0.0-0.7); LYMPH % 38.3 % (20.0-40.0); MEAN CORPUSCULAR HGB CONC 32.6 g/dL (33.0-37.0)
[2018-11-08 13:47] LABS: EOS % 4.7 % (0.0-4.0); MEAN CORPUSCULAR HEMOGLOBIN 23.9 pg (27.0-31.0); MEAN PLATELET VOLUME 9.2 fL (7.2-11.7); MONO # 1.2 K/uL (0.0-0.8); MONO % 24.4 % (0.0-10.0); NEUT # 1.7 K/uL (1.8-7.0); NEUT % 32.6 % (50.0-75.0); NRBC % 0.1 % (0.0-2.0); RBC 5.66 Mil/uL (3.80-5.20); RED CELL DISTRIBUTION WIDTH 14.6 % (11.5-14.5); WHITE BLOOD COUNT 5.1 K/uL (4.8-10.8)
[2018-11-08 13:48] LABS: HEMOGLOBIN 13.5 g/dL (11.0-16.0); MEAN CELL VOLUME 73.3 fL (81.0-99.0); PLATELET COUNT 274 K/uL (130-400)
[2018-11-08 13:51] LABS: SQUAMOUS EPITHIAL 1 /hpf (0-5); URINE BACTERIA RARE (<OCC); URINE BILIRUBIN NEGATIVE (NEGATIVE); URINE BLOOD NEGATIVE (NEGATIVE); URINE CLARITY Clear (Clear); URINE COLOR Colorless (YELLOW); URINE GLUCOSE (UA) NORMAL (Normal); URINE LEUKOCYTE ESTERASE TRACE Leu/uL (Negative); URINE PROTEIN NEGATIVE (NEGATIVE); URINE UROBILINOGEN NORMAL mg/dL (0.2-1.0)
[2018-11-08 14:08] LABS: ALB/GLOB RATIO 1.5 (1.0-2.1); ALBUMIN 4.3 g/dL (3.5-5.0); ALT/SGPT 27 U/L (9-52); AST/SGOT 33 U/L (14-36); BLOOD UREA NITROGEN 18 mg/dL (7-17); GFR NON-AFRICAN AMERICAN 54
[2018-11-08 14:28] VITALS: BP 181/91; PULSE 76; O2SAT 97
[2018-11-08 14:38] LABS: EOSINOPHIL 3 % (0-4); LYMPHOCYTE 31 % (20-40); MONOCYTE 19 % (0-10); NEUTROPHIL 41 % (50-75); PLATELET ESTIMATE NORMAL (NORMAL); REACTIVE LYMPHOCYTES 6 % (0-0); TOTAL CELLS COUNTED 100
[2018-11-08 14:39] LABS: HYPOCHROMIC SLIGHT
[2018-11-08 14:40] LABS: ANISOCYTOSIS SLIGHT; LARGE PLATELETS PRESENT
[2018-11-08 14:41] LABS: POLYCHROMIC SLIGHT
--- NOTE | 2018-11-08 14:45 | C.PDOC ---
History Of Present Illness 77 year old female presents to the emergency department with complaints of elevated blood pressure. Patient states that she measured her blood pressure at home which was found to be 180/80. Patient reports recently changing her medic ation one week ago, and states that her PMD was going to increase the dosage but has not done so yet. Patient denies any complaints at this time. Time Seen by Provider: 11/08/18 13:05 Chief Complaint (Nursing): High Blood Pressure History Per: Patient History/Exam Limitations: no limitations Onset/Duration Of Symptoms: Hrs Current Symptoms Are (Timing): Still Present Quality Of Symptoms: Asymptomatic Past Medical History Reviewed: Historical Data, Nursing Documentation, Vital Signs Vital Signs: Last Vital Signs Temp 98.9 F 11/08/18 12:55 Pulse 76 11/08/18 14:27 Resp 18 11/08/18 14:27 BP 181/91 H 11/08/18 14:27 Pulse Ox 97 11/08/18 14:27 - Medical History PMH: HTN Denies: Asthma, CAD, CHF, COPD Surgical History: No Surg Hx Family History: States: Unknown Family Hx - Social History Hx Alcohol Use: No Hx Substance Use: No - Immunization History Hx Tetanus Toxoid Vaccination: No Hx Influenza Vaccination: No Hx Pneumococcal Vaccination: No Review Of Systems Except As Marked, All Systems Reviewed And Found Negative. Constitutional: Negative for: Fever, Chills Cardiovascular: Positive for: Other (hypertension) Gastrointestinal: Negative for: Nausea, Vomiting, Abdominal Pain, Diarrhea Physical Exam - Physical Exam Appears: Non-toxic, No Acute Distress Skin: Normal Color, Warm, Dry Head: Atraumatic, Normacephalic Eye(s): bilateral: Normal Inspection, PERRL, EOMI Nose: Normal Oral Mucosa: Moist Neck: Normal, Supple Chest: Symmetrical, No Tenderness Cardiovascular: Rhythm Regular, No Murmur Respiratory: Normal Breath Sounds, No Rales, No Rhonchi, No Wheezing Gastrointestinal/Abdominal: Soft, No Tenderness Extremity: Normal ROM Neurological/Psych: Oriented x3, Normal Speech, Normal Cognition ED Course And Treatment - Laboratory Results Result Diagrams: 11/08/18 13:29 11/08/18 13:29 Lab Results: Troponin I < 0.0120 ng/mL (0.00-0.120) 11/08/18 13:29 Total Bilirubin 0.6 mg/dL (0.2-1.3) 11/08/18 13:29 AST 33 U/L (14-36) 11/08/18 13:29 ALT 27 U/L (9-52) 11/08/18 13:29 Alkaline Phosphatase 113 U/L (38-126) 11/08/18 13:29 Total Protein 7.1 g/dL (6.3-8.3) 11/08/18 13:29 Albumin 4.3 g/dL (3.5-5.0) 11/08/18 13:29 Globulin 2.8 gm/dL (2.2-3.9) 11/08/18 13:29 Albumin/Globulin Ratio 1.5 (1.0-2.1) 11/08/18 13:29 Urine Color Colorless (YELLOW) 11/08/18 13:29 Urine Clarity Clear (Clear) 11/08/18 13:29 Urine pH 7.0 (5.0-8.0) 11/08/18 13:29 Ur Specific [place] 1.003 (1.003-1.030) 11/08/18 13:29 Urine Protein Negative mg/dL (NEGATIVE) 11/08/18 13:29 Urine Glucose (UA) Normal mg/dL (Normal) 11/08/18 13:29 Urine Ketones Negative mg/dL (NEGATIVE) 11/08/18 13:29 Urine Blood Negative (NEGATIVE) 11/08/18 13:29 Urine Nitrate Negative (NEGATIVE) 11/08/18 13:29 Urine Bilirubin Negative (NEGATIVE) 11/08/18 13:29 Urine Urobilinogen Normal mg/dL (0.2-1.0) 11/08/18 13:29 Ur Leukocyte Esterase Trace [place]/uL (Negative) 11/08/18 13:29 Urine WBC (Auto) 6 /hpf (0-5) H 11/08/18 13:29 Urine RBC (Auto) 1 /hpf (0-3) 11/08/18 13:29 Ur Squamous Epith Cells 1 /hpf (0-5) 11/08/18 13:29 Urine Bacteria Rare (<OCC) 11/08/18 13:29 Interpretation Of ECG: Normal sinus rhythm at 74bpm, normal axis, normal intervals. O2 Sat by Pulse Oximetry: 97 (RA) Pulse Ox Interpretation: Normal Medical Decision Making Medical Decision Making: Plan: EKG Chemistry Bloodwork CXR Urinalysis Dr. Clarke, the patient's PMD states that the patient can take an additional dose of her BP medications right now, and starting tomorrow she can take two tablets in the morning instead of one. Patient to f/u with PMD in 2-3 days. Disposition - Disposition Referrals: Tita Clarke MD [Staff Provider] - Disposition: HOME/ ROUTINE Disposition Time: 15:00 Condition: GOOD Additional Instructions: BRITNI BOWMAN, thank you for letting us take care of you today. Your provider was Hiram Louis DO and you were treated for HIGH BLOOD PRESSURE. The emergency medical care you received today was directed at your acute symptoms. If you were prescribed any medication, please fill it and take as directed. It may take several days for your symptoms to resolve. Return to the Emergency Department if your symptoms worsen, do not improve, or if you have any other problems. Please contact your doctor or call one of the physicians/clinics you have been referred to that are listed on the Patient Visit Information form that is included in your discharge packet. Bring any paperwork you were given at discharge with you along with any medications you are taking to your follow up visit. Our treatment cannot replace ongoing medical care by a primary care provider outside of the emergency department. Thank you for allowing the [facility] team to be part of your care today. Follow up with your primary care doctor in 2-3 days for re-evaluation and fu rther management. BRITNI BOWMAN, keaton por dejarnos cuidar de usted hoy. Hooks proveedor fue Aaron Louis DO y fue tratado por PRESIN ARTERIAL LAURA. La atencin mdica de emergencia que recibi hoy se dirigi a harris sntomas agudos. Si le recetaron algn medicamento, llnelo y tmelo segn las indicaciones. Los sntomas pueden tardar varios patel en resolverse. Regrese al Departamento de Emergencias si harris sntomas empeoran, no mejoran o si tiene otros problemas. Comunquese con hooks mdico o llame a yuli de los mdicos / clnicas a los que gregory sido referido que figuran en el formulario de Informacin de visita al paciente que se incluye en hooks paquete de laura. Lleve todos los documentos que le entregaron al momento del laura junto con todos los medicamentos que est tomando para hooks visita de seguimiento. Nuestro tratamiento no puede reemplazar la atencin mdica continua por un proveedor de atencin primaria fuera del departamento de emergencias. Keaton por permitir que el equipo de [facility] sea parte de hooks atencin hoy. Estefania un seguimiento con hooks mdico de atencin primaria en 2-3 patel para prakash reevaluacin y manejo adicional. Instructions: High Blood Pressure in Adults Forms: [place] (Welsh) Print Language: PALAUAN - Clinical Impression Clinical Impression: Hypertension - Scribe Statement The provider has reviewed the documentation as recorded by the Scribe (Jeff Santana) Provider Attestation: All medical record entries made by the Scribe were at my direction and personally dictated by me. I have reviewed the chart and agree that the record accurately reflects my personal performance of the history, physical exam, medical decision making, and the department course for this patient. I have also personally directed, reviewed, and agree with the discharge instructions and dis position.
--- NOTE | 2018-11-08 18:22 | RAD ---
Date of service: 11/08/2018 HISTORY: chest pain COMPARISON: Chest radiographs 05/02/2018. FINDINGS: LUNGS: Reticular markings are increased at the right base may reflect residual from prior infiltrate. No consolidation bilaterally. PLEURA: No significant pleural effusion identified, no pneumothorax apparent. CARDIOVASCULAR: Calcific atherosclerotic changes are seen related to the thoracic aorta. Normal cardiac size. No pulmonary vascular congestion. OSSEOUS STRUCTURES: No significant abnormalities. VISUALIZED UPPER ABDOMEN: Normal. OTHER FINDINGS: None. IMPRESSION: Residual fibrosis medial right base with remaining lung leal clear. No acute consolidation, pleural effusion or pulmonary vascular congestion.
== END 2018-11-08 15:19 | disposition home or self-care (01) ==
LOC: C.ER 12:38
DX: I10 Essential (primary) hypertension (principal)